=== PATIENT | male | born 1970 | race Two or more races ===

== ENCOUNTER 2023-09-08 21:35 | Inpatient (IN) ==
--- NOTE | 2023-09-08 22:09 | DR.GENAD ---
HPI Time Seen Time Seen by Provider: 09/08/23 22:09 PCP Primary Care Physician: ALFREDA Complaint/Symptoms Chief Complaint Doctors Comments: Patient was evaluated in the ED on 09/06/2023.He was diagnosed with UTI and given IV antibiotic in the ED and IVF. Patient did not get his medication. He states that the pharmacy was not open. Patient has a h/o diabetes and is noncompliant with his insulin medication. Patient states that he feels weak,his body aches,he has chills, his mouth is dry and he has had nausea and vomiting.Patient denies: fever,hematemesi s,hematochezia,dizziness,headache,chest pain. Chief Complaint:: PT TO ED C/O UNRESOLVED SYMPTOMS ONSET 4 DAYS AGO. PT SEEN IN ED 09/06/23. PT TO ED C/O LOPEZ, BODY ACHES, CHILLS, VOMITING. COVID-19 Coronavirus risk:travel/contact w/high risk person: No Has patient experienced Coronavirus symptoms: No Source History Provided: Friend Mode of Arrival Mode of Arrival: Ambulatory Timing Onset of Chief Complaint: 09/04/23 PMH PMH Past Medical History: No Past Medical History: Diabetes and Hypertension Past Surgical History: Yes Surgical History: Other Past Surgical History Comment: HERNIA Family History History of Family Medical Conditions: No Social History Alcohol Use: None Do you use any recreational Drugs:: No Lives With: Family Lives Where: Home Travel Risk Coronavirus risk:travel/contact w/high risk person: No Has patient experienced Coronavirus symptoms: No Infectious screening Have you traveled outside the country in the last 6 months?: No Isolation: Standard ROS Review of Systems Constitutional: Chills and Malaise Eyes: No Symptoms Reported ENTM: No Symptoms Reported Respiratoy: No Symptoms Reported Cardiovascular: Palpitations; negative Chest Pain or Syncope Gastrointestinal/Abdominal: Nausea and Vomiting; negative Diarrhea Genitourinary: No Symptoms Reported Neurological: No Symptoms Reported Musculoskeletal: Muscle Pain Integumentary: No Symptoms Reported Hematologic/Lymphatic: No Symptoms Reported Endocrine: No Symptoms Reported Psychiatric: No Symptoms Reported All Other Systems: Reviewed and Negative PE Vital Signs Vitals: Vital Signs Temperature 102.5 F Temperature 98.6 F Pulse Rate [Right] 91 Pulse Rate 103 Respiratory Rate 18 Respiratory Rate 22 Blood Pressure [Right Arm] 103/62 Blood Pressure 110/65 O2 Sat by Pulse Oximetry 97 O2 Sat by Pulse Oximetry 95 General Limitations: No Limitations General Appearance: Alert and In No Apparent Distress Head Head Exam: Normal Inspection Eyes Eye exam: Normal Appearance ENT ENT Exam: Mucous Membranes Dry External Ear Exam: Normal External Inspection TM/Canal Exam: Bilateral: Normal Nose Exam: Normal Nose Exam Mouth Exam: Normal Inspection Throat Exam: Normal Inspection Neck Neck Exam: Normal Inspection Chest Chest Inspection: Normal Inspection Respiratory Respiratory Exam: Normal Lung Sounds Bilat Respiratory Exam: Bilateral: Clear to Auscultation Cardiovascular Cardiovascular Exam: Tachycardia Abdominal Exam Abdominal Exam: Normal Inspection, Soft, Tenderness and Hypoactive Bowel Sounds Abdominal Tenderness: Suprapubic Extremities Extremities Exam: Normal Inspection Back Back Exam: Normal Inspection Neurologic Neurological Exam: Alert and Oriented X3 Psychiatric Psychiatric Exam: Normal Affect and Normal Mood Skin Skin Exam: Warm, Dry, Intact and Normal Color MDM Differential Diagnosis Differential Diagnosis: DKA,UTI,dehydration,hyperglycemia COURSE Treatment Treatment: Patient was brought to an exam room and iv access was initiated.Patient was given NS 1 liter IV bolus,labs were ordered.Patient's CMP revealed a Na 125/C02 15.9/Glu 345 Hgb A 1C >14. He was given Regular insulin 3 units IV. Patient had a BG 234 approx 1 h after seum glucose 289.Serum acetone is moderately elevated. Patient was given D5NS @ 200ml/hr and insulin drip protocol will be initiatd to treat his DKA. Patient still has a UTI and received Rocephin 2g iv. Patient with temp 102 and was given tylenol 1000mg iv. Discussed case with Dr Manriquez and patient has been admitted to ICU for further evaluation. ROR Labs Reviewed Laboratory Results Reviewed?: Yes 09/09/23 00:18 09/09/23 03:20 Laboratory: WBC 9.6 X10^3/uL (3.6-10.0) 09/09/23 00:18 RBC 3.89 X10^6/uL (4.7-6.0) L 09/09/23 00:18 Hgb 12.5 g/dL (13.5-18.0) L 09/09/23 00:18 Hct 36.5 % (42.0-54.0) L 09/09/23 00:18 MCV 94.0 fL (80.0-100.0) 09/09/23 00:18 MCH 32.2 pg (27.0-34.0) 09/09/23 00:18 MCHC 34.3 g/dL (33.0-35.0) 09/09/23 00:18 RDW 13.0 % (11.6-16.5) 09/09/23 00:18 Plt Count 211 X10^3/uL (150.0-450.0) 09/09/23 00:18 MPV 8.7 fL (7.4-11.0) 09/09/23 00:18 Neut % (Auto) 83.0 % (42.0-75.0) H 09/09/23 00:18 Lymph % (Auto) 4.7 % (21.0-51.0) L 09/09/23 00:18 [place] % (Auto) 11.7 % (0.0-13.0) 09/09/23 00:18 Eos % (Auto) 0.0 % (0.9-2.9) L 09/09/23 00:18 Baso % (Auto) 0.6 % (0.2-1.0) 09/09/23 00:18 Neut # (Auto) 8.0 x10^3/uL (2.2-4.8) H 09/09/23 00:18 Lymph # (Auto) 0.4 X10^3/uL (1.3-2.9) L 09/09/23 00:18 [place] # (Auto) 1.1 x10^3/uL (0.3-0.8) H 09/09/23 00:18 Eos # (Auto) 0.0 x10^3/uL (0.0-0.2) 09/09/23 00:18 Baso # (Auto) 0.1 X10^3/uL (0.0-0.1) 09/09/23 00:18 Absolute Nucleated RBC 0.1 /100WBC 09/09/23 00:18 Sodium 128 mmol/L (136-145) L 09/09/23 03:20 Corrected Sodium 133 mmol/L (136-145) L 09/09/23 03:20 Potassium 3.8 mmol/L (3.5-5.1) 09/09/23 03:20 Chloride 94 mmol/L (98-107) L 09/09/23 03:20 Carbon Dioxide 16.8 mmol/L (21-32) L 09/09/23 03:20 BUN 11 mg/dL (7-18) 09/09/23 03:20 Creatinine 0.68 mg/dL (0.70-1.30) L 09/09/23 03:20 Est GFR (MDRD) Af Amer > 60 (>60) 09/09/23 03:20 Est GFR (MDRD) Non-Af > 60 (>60) 09/09/23 03:20 Glucose 289 mg/dL (65-99) H 09/09/23 03:20 POC Glucose (mg/dL) 234 mg/dL (65-99) H 09/09/23 04:11 Hemoglobin A1c > 14.0 % 09/09/23 00:18 Calcium 7.6 mg/dL (8.5-10.1) L 09/09/23 03:20 Corrected Calcium 9.2 mg/dL (8.5-10.1) 09/09/23 00:18 Total Bilirubin 0.60 mg/dL (0.2-1.0) 09/09/23 00:18 AST 19 Units/L (15-37) 09/09/23 00:18 ALT 14 Units/L (12-78) 09/09/23 00:18 Alkaline Phosphatase 128 Units/L (46-116) H 09/09/23 00:18 Total Protein 6.2 g/dL (6.4-8.2) L 09/09/23 00:18 Albumin 2.2 g/dL (3.4-5.0) L 09/09/23 00:18 Globulin 4.0 g/dL (2.5-4.5) 09/09/23 00:18 Albumin/Globulin Ratio 0.6 Ratio (1.1-2.1) L 09/09/23 00:18 Specimen Type Clean catch urine 09/09/23 03:00 Urine Color Yellow (YELLOW) 09/09/23 03:00 Urine Appearance Clear (CLEAR) 09/09/23 03:00 Urine pH 5.0 (5.0 - 8.0) 09/09/23 03:00 Ur Specific [place] 1.015 (1.000-1.030) 09/09/23 03:00 Urine Protein 1+ (NEGATIVE) 04/11/24 03:00 Urine Glucose (UA) 4+ (NEGATIVE) 09/09/23 03:00 Urine Ketones 4+ (NEGATIVE) 09/09/23 03:00 Urine Blood 1+ (NEGATIVE) 09/09/23 03:00 Urine Nitrite Positive (NEGATIVE) 09/09/23 03:00 Urine Bilirubin Negative (NEGATIVE) 09/09/23 03:00 Urine Acetone Cancelled 09/09/23 03:00 Urine Urobilinogen Normal (NORMAL) 09/09/23 03:00 Ur Leukocyte Esterase Negative (NEGATIVE) 09/09/23 03:00 Urine RBC 3-5 /HPF (0-3) A 09/09/23 03:00 Urine WBC 20-30 /HPF (0-5) A 09/09/23 03:00 Ur Squamous Epith Cells Few /HPF (NEGATIVE) 09/09/23 03:00 Ur Transition Epith Cell Rare /HPF (NEGATIVE) 09/09/23 03:00 Urine Bacteria 1+ /HPF (NEGATIVE) 09/09/23 03:00 Ur Culture Indicated? Yes/culture set up 09/09/23 03:00 Acetone, Semi-Quant Moderate (NEGATIVE) H 09/09/23 00:18 SARS-CoV-2 (PCR) Negative (NEGATIVE) 09/08/23 22:00 Influenza Type A (PCR) Negative (NEGATIVE) 09/08/23 22:00 Influenza Type B (PCR) Negative (NEGATIVE) 09/08/23 22:00 RSV (PCR) Negative (NEGATIVE) 09/08/23 22:00 S. pyogenes (TEM-PCR) Not detected (NOT DETECT) 09/08/23 22:00 Opioid Opioid Risk Tool Age (Satnam box if 16-45): No History of Preadolescent Sexual Abuse: No Total: 0 Total Score Risk Category: Low Risk Copyright: Jovani SANTIAGO predicting aberrant behaviors Discharge Plan Diagnosis Discharge Problem: DKA (diabetic ketoacidosis), Urinary tract infection Discharge Plan Patient Disposition: ADMITTED INPATIENT Condition: Stable Prescriptions: No Action cefdinir 300 mg capsule 300 mg PO BID Qty: 20 0RF ketorolac 10 mg tablet 10 mg PO Q8H PRN (Reason: pain) Qty: 15 0RF Rx Instructions: maximum total duration of 5 days from all oral, intranasal, or parenteral formulations Health Concerns: Post Hospitalization: new medications and changes needed to prevent readmission or further decline. Pt educated and given instructions on all concerns. Plan of Treatment: Continue with present treatment and follow up plan. Pt is to keep follow up appointment as instructed and take medications as ordered. Orders to Discharge Patient Discharge Orders: Transfer (Routine); Ordered 09/09/23 Ordered By: Cierra Alex Follow ups/Referrals Follow ups/Referrals: NFD,None [Primary Care Provider] - 3 days Instructions Stand Alone Forms: Post Hospital Follow Up Care
[2023-09-08 22:35] LABS: STREP A BY PCR NOT DETECTED (NOT DETECT)
[2023-09-09] MEDS: ZOFRAN INJ 4 MG VIAL IVP ONE (00:20)
[2023-09-09] MEDS: NS 1,000 ML IV 1,000 ML IV ONE (00:20)
[2023-09-09] MEDS: ROCEPHIN VIAL 2 GRAMS 2 G in NS 100 ML IV 100 ML IV ONE (00:21)
[2023-09-09 00:54] LABS: BASOPHILS # (AUTO) 0.1 X10^3/uL (0.0-0.1); BASOPHILS % (AUTO) 0.6 % (0.2-1.0); HEMATOCRIT 36.5 % (42.0-54.0); HEMOGLOBIN 12.5 g/dL (13.5-18.0); LYMPHOCYTES # (AUTO) 0.4 X10^3/uL (1.3-2.9); LYMPHOCYTES % (AUTO) 4.7 % (21.0-51.0); MEAN CORPUSCULAR HEMOGLOBIN 32.2 pg (27.0-34.0); MEAN CORPUSCULAR HGB CONC 34.3 g/dL (33.0-35.0); MEAN PLATELET VOLUME 8.7 fL (7.4-11.0); MONOCYTES # (AUTO) 1.1 x10^3/uL (0.3-0.8); MONOCYTES % (AUTO) 11.7 % (0.0-13.0); PLATELET COUNT 211 X10^3/uL (150.0-450.0); RED BLOOD COUNT 3.89 X10^6/uL (4.7-6.0); WHITE BLOOD COUNT 9.6 X10^3/uL (3.6-10.0)
[2023-09-09 00:58] LABS: ALANINE AMINOTRANSFERASE 14 Units/L (12-78); ALBUMIN 2.2 g/dL (3.4-5.0); ALKALINE PHOSPHATASE 128 Units/L (46-116); ASPARTATE AMINO TRANSFERASE 19 Units/L (15-37); BLOOD UREA NITROGEN 13 mg/dL (7-18); CALCIUM 7.8 mg/dL (8.5-10.1); CARBON DIOXIDE 15.9 mmol/L (21-32); CHLORIDE 90 mmol/L (98-107); COR CA(FOR HYPOALB) 9.2 mg/dL (8.5-10.1); GLUCOSE 345 mg/dL (65-99); TOTAL PROTEIN 6.2 g/dL (6.4-8.2); eGFR NON BLACK RACES > 60 (>60)
[2023-09-09 01:02] LABS: COR NA(FOR HYPERGLY) 131 mmol/L (136-145); POTASSIUM 3.9 mmol/L (3.5-5.1)
[2023-09-09 01:12] LABS: SODIUM 125 mmol/L (136-145)
[2023-09-09 03:27] LABS: BILIRUBIN,URINE NEGATIVE (NEGATIVE); BLOOD/HEMOGLOBIN,URINE 1+ (NEGATIVE); GLUCOSE, URINE 4+ (NEGATIVE); KETONES,URINE 4+ (NEGATIVE); LEUKOCYTE ESTERASE ,URINE NEGATIVE (NEGATIVE); NITRITES,URINE POSITIVE (NEGATIVE); PROTEIN,URINE 1+ (NEGATIVE); UROBILINOGEN,URINE NORMAL (NORMAL)
[2023-09-09] MEDS: NovoLIN R (or HumuLIN R) IV ONE (03:29)
[2023-09-09 03:40] LABS: APPEARANCE,URINE CLEAR (CLEAR); COLOR,URINE YELLOW (YELLOW)
[2023-09-09 03:42] LABS: BACTERIA,URINE 1+ /HPF (NEGATIVE); SQUAMOUS EPITHELIAL CELL,UR FEW /HPF (NEGATIVE); TRANSITIONAL EPI CELLS,URINE RARE /HPF (NEGATIVE)
[2023-09-09 03:43] LABS: BLOOD UREA NITROGEN 11 mg/dL (7-18); CALCIUM 7.6 mg/dL (8.5-10.1); CARBON DIOXIDE 16.8 mmol/L (21-32); CHLORIDE 94 mmol/L (98-107); COR NA(FOR HYPERGLY) 133 mmol/L (136-145); CREATININE 0.68 mg/dL (0.70-1.30); GLUCOSE 289 mg/dL (65-99); POTASSIUM 3.8 mmol/L (3.5-5.1); SODIUM 128 mmol/L (136-145); eGFR NON BLACK RACES > 60 (>60)
[2023-09-09] MEDS: MYXREDLIN 100 UNIT/100 ML BAG 100 UNIT/100 ML PLAST..BAG IV PRN (04:25)
[2023-09-09] MEDS: D5 NS 1,000 ML IV 1,000 ML IV ONE (04:25)
[2023-09-09] MEDS: OFIRMEV IV 1000 MG VIAL 1,000 MG/100 ML VIAL IV ONE (04:50)
[2023-09-09] MEDS ORDERED: TORADOL 30 MG VIAL IVP SCH (05:00)
[2023-09-09] MEDS ORDERED: D5 NS 1,000 ML IV 1,000 ML IV SCH (05:00)
[2023-09-09] MEDS: MYXREDLIN 100 UNIT/100 ML BAG 100 UNIT/100 ML PLAST..BAG IV ONE (07:17)
[2023-09-09 08:52] LABS: ABG BASE EXCESS -0.7 mmol/L (-2.0-2.0); ABG HCO3 23.2 mmol/L (22-26)
[2023-09-09] MEDS: ROCEPHIN VIAL 1 GRAM 1 G in NS 100 ML IV 100 ML IV SCH (09:28)
[2023-09-09] MEDS: TORADOL 30 MG VIAL IVP PRN (09:46)
--- NOTE | 2023-09-09 13:20 | DR.H&P ---
H&P History & Physical for Day of: H&P Date: 09/09/23 Chief Complaint Chief Complaint: Headache with body aches, chills and vomiting. Allergies Allergies Allergy/AdvReac Type Severity Reaction Status Date / Time No Known Allergies Allergy Verified 09/06/23 18:49 History of Present Illness History of Present Illness: This is a pleasant 52-year-old male who presented to the [facility] emergency department a few days ago and was diagnosed with a urinary tract infection. The patient does have a history of diabetes mellitus. He was found to have a small amount acetone last night and because of that we decided to go ahead and admitting to the ICU started on insulin drip per protocol. The patient did not have money and was not able to get the antibiotics that was prescribed to him for his urinary tract infection so we will treat him with IV Rocephin for that. We will rehydrate him with IV fluids and repeat serum acetone and routine labs tomorrow morning. We checked ABG this morning and we see the patient is not acidotic at this time. The [facility] had a urinalysis with C&S done on 09/06/2023 there grew out Pseudomonas pneumoniae ESBL. It is sensitive to meropenem with a KASSY of less than 0.5. Patient also had a positive blood culture 1 out of 2 on 09/06/1901/18/2024 showed gram- positive cocci. Past Medical History Past Medical History: Diabetes and Hypertension Past Surgical History Surgical History: Other Social History Does patient currently use any type of tobacco product: No Have you used tobacco products in the last 12 months: No Type of Tobacco Use: None Alcohol Use: None Drug Use: None Medications Home Medications: Home Medications Medication Instructions Recorded Confirmed Type NK 09/09/23 09/09/23 History Labs 09/09/23 00:18 09/09/23 03:20 Labs: Laboratory WBC 9.6 X10^3/uL (3.6-10.0) 09/09/23 00:18 RBC 3.89 X10^6/uL (4.7-6.0) L 09/09/23 00:18 Hgb 12.5 g/dL (13.5-18.0) L 09/09/23 00:18 Hct 36.5 % (42.0-54.0) L 09/09/23 00:18 MCV 94.0 fL (80.0-100.0) 09/09/23 00:18 MCH 32.2 pg (27.0-34.0) 09/09/23 00:18 MCHC 34.3 g/dL (33.0-35.0) 09/09/23 00:18 RDW 13.0 % (11.6-16.5) 09/09/23 00:18 Plt Count 211 X10^3/uL (150.0-450.0) 09/09/23 00:18 MPV 8.7 fL (7.4-11.0) 09/09/23 00:18 Neut % (Auto) 83.0 % (42.0-75.0) H 09/09/23 00:18 Lymph % (Auto) 4.7 % (21.0-51.0) L 09/09/23 00:18 [place] % (Auto) 11.7 % (0.0-13.0) 09/09/23 00:18 Eos % (Auto) 0.0 % (0.9-2.9) L 09/09/23 00:18 Baso % (Auto) 0.6 % (0.2-1.0) 09/09/23 00:18 Neut # (Auto) 8.0 x10^3/uL (2.2-4.8) H 09/09/23 00:18 Lymph # (Auto) 0.4 X10^3/uL (1.3-2.9) L 09/09/23 00:18 [place] # (Auto) 1.1 x10^3/uL (0.3-0.8) H 09/09/23 00:18 Eos # (Auto) 0.0 x10^3/uL (0.0-0.2) 09/09/23 00:18 Baso # (Auto) 0.1 X10^3/uL (0.0-0.1) 09/09/23 00:18 Absolute Nucleated RBC 0.1 /100WBC 09/09/23 00:18 Sample Site [facility] 09/09/23 08:47 ABG pH 7.430 (7.35-7.45) 09/09/23 08:47 ABG pCO2 35.0 mmHg (35.0-45.0) 09/09/23 08:47 ABG pO2 64.0 mmHg (80.0-100.0) L 09/09/23 08:47 ABG HCO3 23.2 mmol/L (22-26) 09/09/23 08:47 ABG O2 Saturation 93.0 % (90-100) 09/09/23 08:47 ABG Base Excess -0.7 mmol/L (-2.0-2.0) 09/09/23 08:47 Stiven Test N/a 09/09/23 08:47 A-a Gradient 42.0 mmHg 09/09/23 08:47 FiO2 21.0 09/09/23 08:47 Blood Gas Comments Pt kirsten well elj 09/09/23 08:47 Sodium 128 mmol/L (136-145) L 09/09/23 03:20 Corrected Sodium 133 mmol/L (136-145) L 09/09/23 03:20 Potassium 3.8 mmol/L (3.5-5.1) 09/09/23 03:20 Chloride 94 mmol/L (98-107) L 09/09/23 03:20 Carbon Dioxide 16.8 mmol/L (21-32) L 09/09/23 03:20 BUN 11 mg/dL (7-18) 09/09/23 03:20 Creatinine 0.68 mg/dL (0.70-1.30) L 09/09/23 03:20 Est GFR (MDRD) Af Amer > 60 (>60) 09/09/23 03:20 Est GFR (MDRD) Non-Af > 60 (>60) 09/09/23 03:20 Glucose 289 mg/dL (65-99) H 09/09/23 03:20 POC Glucose (mg/dL) 216 mg/dL (65-99) H 09/09/23 13:04 Hemoglobin A1c > 14.0 % 09/09/23 00:18 Calcium 7.6 mg/dL (8.5-10.1) L 09/09/23 03:20 Corrected Calcium 9.2 mg/dL (8.5-10.1) 09/09/23 00:18 Total Bilirubin 0.60 mg/dL (0.2-1.0) 09/09/23 00:18 AST 19 Units/L (15-37) 09/09/23 00:18 ALT 14 Units/L (12-78) 09/09/23 00:18 Alkaline Phosphatase 128 Units/L (46-116) H 09/09/23 00:18 Total Protein 6.2 g/dL (6.4-8.2) L 09/09/23 00:18 Albumin 2.2 g/dL (3.4-5.0) L 09/09/23 00:18 Globulin 4.0 g/dL (2.5-4.5) 09/09/23 00:18 Albumin/Globulin Ratio 0.6 Ratio (1.1-2.1) L 09/09/23 00:18 Specimen Type Clean catch urine 09/09/23 03:00 Urine Color Yellow (YELLOW) 09/09/23 03:00 Urine Appearance Clear (CLEAR) 09/09/23 03:00 Urine pH 5.0 (5.0 - 8.0) 09/09/23 03:00 Ur Specific [place] 1.015 (1.000-1.030) 09/09/23 03:00 Urine Protein 1+ (NEGATIVE) 09/09/23 03:00 Urine Glucose (UA) 4+ (NEGATIVE) 09/09/23 03:00 Urine Ketones 4+ (NEGATIVE) 09/09/23 03:00 Urine Blood 1+ (NEGATIVE) 09/09/23 03:00 Urine Nitrite Positive (NEGATIVE) 09/09/23 03:00 Urine Bilirubin Negative (NEGATIVE) 09/09/23 03:00 Urine Acetone Cancelled 09/09/23 03:00 Urine Urobilinogen Normal (NORMAL) 09/09/23 03:00 Ur Leukocyte Esterase Negative (NEGATIVE) 09/09/23 03:00 Urine RBC 3-5 /HPF (0-3) A 09/09/23 03:00 Urine WBC 20-30 /HPF (0-5) A 09/09/23 03:00 Ur Squamous Epith Cells Few /HPF (NEGATIVE) 09/09/23 03:00 Ur Transition Epith Cell Rare /HPF (NEGATIVE) 09/09/23 03:00 Urine Bacteria 1+ /HPF (NEGATIVE) 09/09/23 03:00 Ur Culture Indicated? Yes/culture set up 09/09/23 03:00 Acetone, Semi-Quant Moderate (NEGATIVE) H 09/09/23 00:18 SARS-CoV-2 (PCR) Negative (NEGATIVE) 09/08/23 22:00 Influenza Type A (PCR) Negative (NEGATIVE) 09/08/23 22:00 Influenza Type B (PCR) Negative (NEGATIVE) 09/08/23 22:00 RSV (PCR) Negative (NEGATIVE) 09/08/23 22:00 S. pyogenes (TEM-PCR) Not detected (NOT DETECT) 09/08/23 22:00 Review of Systems Constitutional: Fever, Chills, Sweats, Weakness and Malaise Eyes: No Symptoms Reported ENT: No Symptoms Reported Respiratory: No Symptoms Reported Cardiovascular: No Symptoms Reported Gastrointestinal: No Symptoms Reported Genitourinary: No Symptoms Reported Musculoskeletal: No Symptoms Reported Skin: No Symptoms Reported Neurological: No Symptoms Reported Physical Exam Vital Signs: Vital Signs Temperature 97.6 F Pulse Rate 87 Pulse Rate 78 Pulse Rate 76 Pulse Rate 76 Pulse Rate 75 Pulse Rate 71 Pulse Rate 71 Pulse Rate 76 Respiratory Rate 14 Respiratory Rate 19 Respiratory Rate 17 Respiratory Rate 16 Respiratory Rate 14 Respiratory Rate 23 Respiratory Rate 16 Respiratory Rate 15 Respiratory Rate 12 Respiratory Rate 23 Blood Pressure 81/50 Blood Pressure 97/57 Blood Pressure 97/57 Blood Pressure 103/73 O2 Sat by Pulse Oximetry 97 O2 Sat by Pulse Oximetry 96 O2 Sat by Pulse Oximetry 97 O2 Sat by Pulse Oximetry 97 O2 Sat by Pulse Oximetry 95 O2 Sat by Pulse Oximetry 95 O2 Sat by Pulse Oximetry 95 Oriented: Normal, Time, Person and Place Eyes: Normal Ear: Normal Nose: Normal Respiratory: Clear Throughout Cardiovascular: Normal Auscultation: Bowel Sounds: Normal Palpation: Normal Tenderness: Normal Skin: Normal Musculoskeletal: Normal Psychiatric: Normal Mood Description: Calm Affect: Normal Speech Pattern: Clear and Appropriate Assessment/Plan (1) DKA (diabetic ketoacidosis): Status: Acute Plan: Insulin drip per protocol. Check daily ABGs and serum acetone's until he is serum acetone negative. (2) Urinary tract infection: Narrative Support Text: Recent urine culture and sensitivity on 09/06/2023 show the patient grew out Klebsiella pneumoniae ESBL. It is sensitive to Invanz with KASSY of less than 0.5. Status: Acute Plan: IV Rocephin. Follow-up urine culture and sensitivity report available. Start Invanz 1 g IV daily. (3) General weakness: Status: Acute Plan: Monitor for improvement with IV insulin drip and IV fluid hydration along with IV antibiotics.
[2023-09-09] MEDS: INVanz INJ 1 GRAM VIAL 1 G in NS 100 ML IV 100 ML IV SCH (14:10)
[2023-09-09] MEDS: NS 250 ML IV 250 ML IV ONE (14:48)
--- NOTE | 2023-09-09 15:07 | RAD ---
EXAM: CHEST, 1 VIEW HISTORY: P02 [id number], SOB; COMPARISON: Prior study or studies were utilized for comparison during interpretation with the most relevant good ed 09/06/2023 TECHNIQUE: CHEST, 1 VIEW FINDINGS: Chest: Lines and tubes: Cardiac leads overlie the chest. Mediastinum: Cardiac and mediastinal shadow is within normal limits for size and contour. Pulmonary vessels: No pulmonary vascular congestion. Lung sharma: No suspicious airspace opacity. Pleura: No effusion. No pneumothorax. Bones and soft tissues: No acute osseous or soft tissue abnormality. IMPRESSION: 1. No acute cardiopulmonary abnormality THIS IS AN ELECTRONICALLY VERIFIED FINAL REPORT 09/09/2023 2:54 PM - Electronically signed by Trev Bobby MD
[2023-09-09] MEDS: TYLENOL 325 MG TAB PO PRN (20:30)
[2023-09-10] MEDS: NS 250 ML IV 250 ML IV ONE (04:00)
[2023-09-10 04:50] LABS: BASOPHILS % (AUTO) 0.7 % (0.2-1.0); EOSINOPHILS % (AUTO) 0.1 % (0.9-2.9); HEMATOCRIT 33.5 % (42.0-54.0); HEMOGLOBIN 11.7 g/dL (13.5-18.0); LYMPHOCYTES # (AUTO) 0.3 X10^3/uL (1.3-2.9); LYMPHOCYTES % (AUTO) 5.9 % (21.0-51.0); MEAN CORPUSCULAR HEMOGLOBIN 32.2 pg (27.0-34.0); MEAN CORPUSCULAR HGB CONC 34.7 g/dL (33.0-35.0); MEAN CORPUSCULAR VOLUME 92.7 fL (80.0-100.0); MEAN PLATELET VOLUME 8.9 fL (7.4-11.0); MONOCYTES # (AUTO) 0.6 x10^3/uL (0.3-0.8); MONOCYTES % (AUTO) 9.8 % (0.0-13.0); NEUTROPHILS # (AUTO) 4.9 x10^3/uL (2.2-4.8); NEUTROPHILS % (AUTO) 83.5 % (42.0-75.0); PLATELET COUNT 203 X10^3/uL (150.0-450.0); RED BLOOD COUNT 3.62 X10^6/uL (4.7-6.0); RED CELL DISTRIBUTION WIDTH 13.2 % (11.6-16.5); WHITE BLOOD COUNT 5.9 X10^3/uL (3.6-10.0)
[2023-09-10 05:07] LABS: BLOOD UREA NITROGEN 10 mg/dL (7-18); CALCIUM 7.8 mg/dL (8.5-10.1); CARBON DIOXIDE 24.8 mmol/L (21-32); CHLORIDE 102 mmol/L (98-107); COR NA(FOR HYPERGLY) 135 mmol/L (136-145); CREATININE 0.54 mg/dL (0.70-1.30); GLUCOSE 119 mg/dL (65-99); SODIUM 135 mmol/L (136-145); eGFR NON BLACK RACES > 60 (>60)
[2023-09-10 05:23] LABS: ALANINE AMINOTRANSFERASE 113 Units/L (12-78); ALBUMIN 1.8 g/dL (3.4-5.0); ALKALINE PHOSPHATASE 326 Units/L (46-116); ASPARTATE AMINO TRANSFERASE 227 Units/L (15-37); COR CA(FOR HYPOALB) 9.6 mg/dL (8.5-10.1); POTASSIUM 2.5 mmol/L (3.5-5.1); TOTAL PROTEIN 5.4 g/dL (6.4-8.2)
[2023-09-10] MEDS: CONSULT PHARMACY - POTASSIUM & MAGNESIUM XX SCH (06:48)
[2023-09-10] MEDS: K-DUR TAB 20 MEQ PO SCH (08:48)
[2023-09-10] MEDS ORDERED: IMODIUM CAP 2 MG PO PRN (09:01)
[2023-09-10 13:03] LABS: CRYPTOSPORIDIUM PARVUM ANTIGEN NEGATIVE (NEGATIVE); GIARDIA LAMBLIA ANTIGEN NEGATIVE (NEGATIVE)
[2023-09-10] MEDS: LEVEMIR SC SCH (14:02)
[2023-09-10] MEDS: CIPRO IV 400 MG PREMIX* 400 MG/200 ML IV.SOLN. IV SCH (14:02)
[2023-09-10] MEDS: NovoLIN R (or HumuLIN R) SUBCUT PRN (14:03)
--- NOTE | 2023-09-10 16:42 | PCM.PROG ---
Progress Note Progress Note for Day of Date of Exam: 09/10/23 Subjective Subjective: The patient is alert and awake this morning. He is complaining some abdominal pain. Later on in the morning the nurse called me and states that he has started having diarrhea. I ordered a Hemoccult, stool for WBCs, stool culture, and C. difficile. The patient is positive on his Hemoccult and is WBCs in the stool. He is negative for Campylobacter jejuni and the stool culture is pending. I have forwarded went ahead and started him on IV Cipro along with IV Invanz. Regarding his DKA has resolved. We put him on a slight scale regular insulin per protocol and I had started him on Levemir 10 units subcutaneous injections twice daily as well. He has profound hypokalemia today which we will replace. He also was found to have hypomagnesemia which we will will start him on replacement for that as well. We found that the patient has elevated LFTs this morning so we are going to check a liver ultrasound and hepatitis panel. I suspect that elevated LFTs are secondary to sepsis. Blood cultures were done and Gram stain of the blood culture showed he has gram-negative rods. His urine was positive for Klebsiella pneumoniae ESBL and this is likely the cause of his sepsis. Patient is covered with IV Invanz which showed KASSY of less than 0.5 from the urine culture. I suspect the patient likely has urosepsis. Past Medical Family Social History Allergies: Allergies No Known Allergies Allergy (Verified 09/06/23 18:49) Review of Systems ROS: No change since H&P Vital Signs and I&O's Vital Signs: Vital Signs Temperature 97.9 F Pulse Rate 81 Pulse Rate 84 Pulse Rate 77 Pulse Rate 81 Pulse Rate 80 Pulse Rate 82 Pulse Rate 86 Pulse Rate 84 Pulse Rate 85 Pulse Rate 83 Pulse Rate 81 Pulse Rate 77 Pulse Rate 77 Pulse Rate 77 Pulse Rate 79 Pulse Rate 80 Pulse Rate 80 Pulse Rate 72 Pulse Rate 71 Pulse Rate 71 Pulse Rate 73 Pulse Rate 73 Pulse Rate 75 Pulse Rate 75 Pulse Rate 78 Pulse Rate 79 Pulse Rate 81 Pulse Rate 83 Pulse Rate 85 Pulse Rate 86 Pulse Rate 92 Respiratory Rate 19 Respiratory Rate 41 Respiratory Rate 15 Respiratory Rate 14 Respiratory Rate 12 Respiratory Rate 12 Respiratory Rate 16 Respiratory Rate 20 Respiratory Rate 31 Respiratory Rate 19 Respiratory Rate 23 Respiratory Rate 16 Respiratory Rate 16 Respiratory Rate 22 Respiratory Rate 19 Respiratory Rate 22 Respiratory Rate 12 Respiratory Rate 17 Respiratory Rate 12 Respiratory Rate 13 Respiratory Rate 11 Respiratory Rate 12 Respiratory Rate 15 Respiratory Rate 13 Respiratory Rate 14 Respiratory Rate 14 Respiratory Rate 14 Respiratory Rate 24 Respiratory Rate 19 Respiratory Rate 18 Blood Pressure 109/78 Blood Pressure 112/70 Blood Pressure 96/61 Blood Pressure 104/63 O2 Sat by Pulse Oximetry 98 O2 Sat by Pulse Oximetry 97 O2 Sat by Pulse Oximetry 97 O2 Sat by Pulse Oximetry 97 O2 Sat by Pulse Oximetry 96 O2 Sat by Pulse Oximetry 97 O2 Sat by Pulse Oximetry 98 O2 Sat by Pulse Oximetry 98 O2 Sat by Pulse Oximetry 99 O2 Sat by Pulse Oximetry 98 O2 Sat by Pulse Oximetry 99 O2 Sat by Pulse Oximetry 98 O2 Sat by Pulse Oximetry 98 O2 Sat by Pulse Oximetry 99 O2 Sat by Pulse Oximetry 98 O2 Sat by Pulse Oximetry 99 O2 Sat by Pulse Oximetry 97 O2 Sat by Pulse Oximetry 96 O2 Sat by Pulse Oximetry 93 O2 Sat by Pulse Oximetry 97 O2 Sat by Pulse Oximetry 96 O2 Sat by Pulse Oximetry 97 O2 Sat by Pulse Oximetry 96 O2 Sat by Pulse Oximetry 95 O2 Sat by Pulse Oximetry 95 O2 Sat by Pulse Oximetry 96 O2 Sat by Pulse Oximetry 95 O2 Sat by Pulse Oximetry 93 O2 Sat by Pulse Oximetry 95 O2 Sat by Pulse Oximetry 95 O2 Sat by Pulse Oximetry 95 Intake and Output: Intake & Output 09/08/23 09/09/23 09/10/23 09/11/23 11:59 11:59 11:59 11:59 Intake Total 73 / 73 2800 / 2800 378 / 378 Output Total 1925 / 1925 575 / 575 Balance 73 / 73 875 / 875 -197 / -197 Physical Exam Oriented: Normal, Time, Person and Place Eyes: Normal Ear: Normal Nose: Normal Respiratory: Normal Cardiovascular: Normal Auscultation: Bowel Sounds: Normal Tenderness: Normal Skin: Normal Musculoskeletal: Normal Psychiatric: Normal Mood Description: Calm Affect: Normal Speech Pattern: Clear and Appropriate Laboratory and Diagnostics 09/10/23 04:00 09/10/23 04:00 Labs: 09/10/23 12:05 Stool - Final 09/09/23 03:00 Urine,Clean Catch Urine Culture - Preliminary 09/09/23 20:23 Blood Blood Culture Gram Stain - Final Laboratory WBC 5.9 X10^3/uL (3.6-10.0) 09/10/23 04:00 RBC 3.62 X10^6/uL (4.7-6.0) L 09/10/23 04:00 Hgb 11.7 g/dL (13.5-18.0) L 09/10/23 04:00 Hct 33.5 % (42.0-54.0) L 09/10/23 04:00 MCV 92.7 fL (80.0-100.0) 09/10/23 04:00 MCH 32.2 pg (27.0-34.0) 09/10/23 04:00 MCHC 34.7 g/dL (33.0-35.0) 09/10/23 04:00 RDW 13.2 % (11.6-16.5) 09/10/23 04:00 Plt Count 203 X10^3/uL (150.0-450.0) 09/10/23 04:00 MPV 8.9 fL (7.4-11.0) 09/10/23 04:00 Neut % (Auto) 83.5 % (42.0-75.0) H 09/10/23 04:00 Lymph % (Auto) 5.9 % (21.0-51.0) L 09/10/23 04:00 [place] % (Auto) 9.8 % (0.0-13.0) 09/10/23 04:00 Eos % (Auto) 0.1 % (0.9-2.9) L 09/10/23 04:00 Baso % (Auto) 0.7 % (0.2-1.0) 09/10/23 04:00 Neut # (Auto) 4.9 x10^3/uL (2.2-4.8) H 09/10/23 04:00 Lymph # (Auto) 0.3 X10^3/uL (1.3-2.9) L 09/10/23 04:00 [place] # (Auto) 0.6 x10^3/uL (0.3-0.8) 09/10/23 04:00 Eos # (Auto) 0.0 x10^3/uL (0.0-0.2) 09/10/23 04:00 Baso # (Auto) 0.0 X10^3/uL (0.0-0.1) 09/10/23 04:00 Absolute Nucleated RBC 0.0 /100WBC 09/10/23 04:00 Sample Site Rbra 09/09/23 08:47 ABG pH 7.430 (7.35-7.45) 09/09/23 08:47 ABG pCO2 35.0 mmHg (35.0-45.0) 09/09/23 08:47 ABG pO2 64.0 mmHg (80.0-100.0) L 09/09/23 08:47 ABG HCO3 23.2 mmol/L (22-26) 09/09/23 08:47 ABG O2 Saturation 93.0 % (90-100) 09/09/23 08:47 ABG Base Excess -0.7 mmol/L (-2.0-2.0) 09/09/23 08:47 Stiven Test N/a 09/09/23 08:47 A-a Gradient 42.0 mmHg 09/09/23 08:47 FiO2 21.0 09/09/23 08:47 Blood Gas Comments Pt kirsten well elj 09/09/23 08:47 Sodium 135 mmol/L (136-145) L 09/10/23 04:00 Corrected Sodium 135 mmol/L (136-145) L 09/10/23 04:00 Potassium 2.5 mmol/L (3.5-5.1) L* 09/10/23 04:00 Chloride 102 mmol/L (98-107) 09/10/23 04:00 Carbon Dioxide 24.8 mmol/L (21-32) 09/10/23 04:00 BUN 10 mg/dL (7-18) 09/10/23 04:00 Creatinine 0.54 mg/dL (0.70-1.30) L 09/10/23 04:00 Est GFR (MDRD) Af Amer > 60 (>60) 09/10/23 04:00 Est GFR (MDRD) Non-Af > 60 (>60) 09/10/23 04:00 Glucose 119 mg/dL (65-99) H 09/10/23 04:00 POC Glucose (mg/dL) 310 mg/dL (65-99) H 09/10/23 16:23 Hemoglobin A1c > 14.0 % 09/09/23 00:18 Calcium 7.8 mg/dL (8.5-10.1) L 09/10/23 04:00 Corrected Calcium 9.6 mg/dL (8.5-10.1) 09/10/23 04:00 Magnesium 1.8 mg/dL (2.0-2.9) L 09/10/23 04:00 Total Bilirubin 0.20 mg/dL (0.2-1.0) 09/10/23 04:00 AST 227 Units/L (15-37) H 09/10/23 04:00 ALT 113 Units/L (12-78) H 09/10/23 04:00 Alkaline Phosphatase 326 Units/L (46-116) H 09/10/23 04:00 Total Protein 5.4 g/dL (6.4-8.2) L 09/10/23 04:00 Albumin 1.8 g/dL (3.4-5.0) L 09/10/23 04:00 Globulin 3.6 g/dL (2.5-4.5) 09/10/23 04:00 Albumin/Globulin Ratio 0.5 Ratio (1.1-2.1) L 09/10/23 04:00 Specimen Type Clean catch urine 09/09/23 03:00 Urine Color Yellow (YELLOW) 09/09/23 03:00 Urine Appearance Clear (CLEAR) 09/09/23 03:00 Urine pH 5.0 (5.0 - 8.0) 09/09/23 03:00 Ur Specific [place] 1.015 (1.000-1.030) 09/09/23 03:00 Urine Protein 1+ (NEGATIVE) 09/09/23 03:00 Urine Glucose (UA) 4+ (NEGATIVE) 09/09/23 03:00 Urine Ketones 4+ (NEGATIVE) 09/09/23 03:00 Urine Blood 1+ (NEGATIVE) 09/09/23 03:00 Urine Nitrite Positive (NEGATIVE) 09/09/23 03:00 Urine Bilirubin Negative (NEGATIVE) 09/09/23 03:00 Urine Acetone Cancelled 09/09/23 03:00 Urine Urobilinogen Normal (NORMAL) 09/09/23 03:00 Ur Leukocyte Esterase Negative (NEGATIVE) 09/09/23 03:00 Urine RBC 3-5 /HPF (0-3) A 09/09/23 03:00 Urine WBC 20-30 /HPF (0-5) A 09/09/23 03:00 Ur Squamous Epith Cells Few /HPF (NEGATIVE) 09/09/23 03:00 Ur Transition Epith Cell Rare /HPF (NEGATIVE) 09/09/23 03:00 Urine Bacteria 1+ /HPF (NEGATIVE) 09/09/23 03:00 Ur Culture Indicated? Yes/culture set up 09/09/23 03:00 Stl Occult Blood (IFOB) Positive (NEGATIVE) A 09/10/23 12:05 Stool for White Cells Positive (NEGATIVE) A 09/10/23 12:05 Stl C. diff Tox B Gene Negative (NEGATIVE) 09/10/23 12:05 Stl C. diff [id number] Presumptive negative (NEGATIVE) 09/10/23 12:05 Acetone, Semi-Quant Negative (NEGATIVE) 09/10/23 04:00 SARS-CoV-2 (PCR) Negative (NEGATIVE) 09/08/23 22:00 Cryptosporid parvum Ag Negative (NEGATIVE) 09/10/23 12:05 Giardia lamblia Ag Negative (NEGATIVE) 09/10/23 12:05 Influenza Type A (PCR) Negative (NEGATIVE) 09/08/23 22:00 Influenza Type B (PCR) Negative (NEGATIVE) 09/08/23 22:00 RSV (PCR) Negative (NEGATIVE) 09/08/23 22:00 S. pyogenes (TEM-PCR) Not detected (NOT DETECT) 09/08/23 22:00 Radiology Reviewed: Yes Plan (1) DKA (diabetic ketoacidosis): Status: Acute Plan: Insulin drip per protocol. Check daily ABGs and serum acetone's until he is serum acetone negative. (2) Urinary tract infection: Status: Acute Plan: IV Rocephin. Follow-up urine culture and sensitivity report available. Start Invanz 1 g IV daily. (3) General weakness: Status: Acute Plan: Monitor for improvement with IV insulin drip and IV fluid hydration along with IV antibiotics. (4) Gram-negative sepsis: Status: Acute Plan: Follow-up blood cultures. I suspect the patient likely has urosepsis secondary to ESBL Klebsiella pneumonia. It is sensitive to Invanz. (5) Hypokalemia: Status: Acute Plan: Replace with potassium replacement protocol. (6) Hypomagnesemia: Status: Acute Plan: Replace magnesium with the magnesium replacement and potassium replacement protocol. (7) Elevated LFTs: Status: Acute Plan: The patient's elevated LFTs are likely secondary to gram-negative sepsis. However we will go ahead and check hepatitis panel and a liver ultrasound. (8) Urinary tract infection due to extended-spectrum beta lactamase (ESBL)- producing Klebsiella: Status: Acute Plan: Continue IV Invanz. He has KASSY of less than 0.5 for ertapenem. (9) Type 1 diabetes mellitus: Status: Acute Plan: Levemir 10 units subcutaneous injections twice daily. Regular insulin sliding scale before every meal and at bedtime.
[2023-09-10] MEDS: SNACK - Diabetic Appropriate PO SCH (19:48)
[2023-09-11 05:36] LABS: BASOPHILS # (AUTO) 0.1 X10^3/uL (0.0-0.1); BASOPHILS % (AUTO) 1.1 % (0.2-1.0); EOSINOPHILS % (AUTO) 0.2 % (0.9-2.9); HEMATOCRIT 34.6 % (42.0-54.0); LYMPHOCYTES # (AUTO) 0.6 X10^3/uL (1.3-2.9); LYMPHOCYTES % (AUTO) 10.1 % (21.0-51.0); MEAN CORPUSCULAR HEMOGLOBIN 32.3 pg (27.0-34.0); MEAN CORPUSCULAR HGB CONC 34.7 g/dL (33.0-35.0); MEAN CORPUSCULAR VOLUME 93.1 fL (80.0-100.0); MEAN PLATELET VOLUME 8.8 fL (7.4-11.0); MONOCYTES # (AUTO) 0.9 x10^3/uL (0.3-0.8); MONOCYTES % (AUTO) 14.8 % (0.0-13.0); NEUTROPHILS # (AUTO) 4.6 x10^3/uL (2.2-4.8); NEUTROPHILS % (AUTO) 73.8 % (42.0-75.0); PLATELET COUNT 208 X10^3/uL (150.0-450.0); RED BLOOD COUNT 3.72 X10^6/uL (4.7-6.0); RED CELL DISTRIBUTION WIDTH 13.6 % (11.6-16.5); WHITE BLOOD COUNT 6.2 X10^3/uL (3.6-10.0)
[2023-09-11 05:43] LABS: ALANINE AMINOTRANSFERASE 112 Units/L (12-78); ALBUMIN 1.9 g/dL (3.4-5.0); ALKALINE PHOSPHATASE 331 Units/L (46-116); ASPARTATE AMINO TRANSFERASE 122 Units/L (15-37); BLOOD UREA NITROGEN 11 mg/dL (7-18); CALCIUM 7.9 mg/dL (8.5-10.1); CHLORIDE 97 mmol/L (98-107); COR CA(FOR HYPOALB) 9.6 mg/dL (8.5-10.1); COR NA(FOR HYPERGLY) 140 mmol/L (136-145); CREATININE 0.61 mg/dL (0.70-1.30); GLUCOSE 403 mg/dL (65-99); POTASSIUM 3.4 mmol/L (3.5-5.1); SODIUM 133 mmol/L (136-145); TOTAL PROTEIN 5.7 g/dL (6.4-8.2); eGFR NON BLACK RACES > 60 (>60)
[2023-09-11 06:15] LABS: BAND NEUTROPHILS % 10 % (0-10)
[2023-09-11 06:16] LABS: BASOPHILS % (MANUAL) 1 % (0-1); PLATELET MORPHOLOGY COMMENT NORMAL (NORMAL)
[2023-09-11] MEDS ORDERED: CONSULT PHARMACY - POTASSIUM & MAGNESIUM XX SCH (07:00)
[2023-09-11] MEDS: K-DUR TAB 20 MEQ PO SCH (09:16)
[2023-09-11] MEDS: MAG-OX TAB PO SCH (10:22)
--- NOTE | 2023-09-11 11:08 | PCM.PROG ---
Progress Note Progress Note for Day of Date of Exam: 09/11/23 Subjective Subjective: Patient seen at bedside, no acute events overnight. He has not had any diarrhea overnight. He has been ambulating in the room. He reports generalized joint pain and weakness. He is currently being treated for bacteremia, colitis and DKA. He is currently on IV Cipro and IV Invanz. He de nies any nausea, vomiting or abdominal pain. Labs and imaging reviewed: -WBC 6.2 hemoglobin 12.0 potassium 3.4 magnesium 1.8 -AST/ALT: 122/112 AP: 331 -Hepatitis panel pending -Liver ultrasound pending -Stool culture negative -09/09/2023 blood culture x 1: Gram-negative anand Plan: Continue IV antibiotics, follow-up pending cultures and lab results. Increase Levemir to 12 units twice daily, continue SSI. Follow hepatitis panel and liver ultrasound. Replace magnesium and potassium as per protocol. Encourage ambulation in the room. Monitor a.m. labs and imaging. Time spent for clinical assessment, reviewing labs and imaging, physical exam, decision making and documentation greater than 45 minutes Past Medical Family Social History Allergies: Allergies No Known Allergies Allergy (Verified 09/06/23 18:49) Review of Systems ROS: No change since H&P Vital Signs and I&O's Vital Signs: Vital Signs Temperature 97.7 F Temperature 97.8 F Pulse Rate 74 Pulse Rate 83 Pulse Rate 81 Pulse Rate 79 Pulse Rate 76 Pulse Rate 75 Pulse Rate 74 Pulse Rate 92 Respiratory Rate 19 Respiratory Rate 18 Respiratory Rate 20 Respiratory Rate 16 Respiratory Rate 16 Respiratory Rate 16 Respiratory Rate 15 Respiratory Rate 19 Respiratory Rate 12 Respiratory Rate 19 Respiratory Rate 22 Respiratory Rate 19 Blood Pressure 115/66 Blood Pressure 118/79 Blood Pressure 139/87 Blood Pressure 119/82 Blood Pressure 88/64 Blood Pressure 93/59 Blood Pressure 99/68 Blood Pressure 103/71 O2 Sat by Pulse Oximetry 97 O2 Sat by Pulse Oximetry 98 O2 Sat by Pulse Oximetry 99 O2 Sat by Pulse Oximetry 98 O2 Sat by Pulse Oximetry 98 O2 Sat by Pulse Oximetry 96 O2 Sat by Pulse Oximetry 96 O2 Sat by Pulse Oximetry 95 Intake and Output: Intake & Output 09/08/23 09/09/23 09/10/23 09/11/23 23:59 23:59 23:59 23:59 Intake Total 2340 / 2340 1175 / 1175 680 / 680 Output Total 1100 / 1100 2500 / 2500 700 / 700 Balance 1240 / 1240 -1325 / -1325 -20 / -20 Physical Exam Oriented: Normal, Time, Person and Place Eyes: Normal Ear: Normal Nose: Normal Respiratory: Normal Cardiovascular: Normal Auscultation: Bowel Sounds: Normal Palpation: Normal Tenderness: Normal Skin: Normal Musculoskeletal: Normal Psychiatric: Normal Mood Description: Calm Affect: Normal Speech Pattern: Clear and Appropriate Laboratory and Diagnostics 09/11/23 04:06 09/11/23 04:06 Labs: 09/09/23 03:00 Urine,Clean Catch Urine Culture - Preliminary 09/10/23 12:05 Stool Stool Culture - Preliminary 09/10/23 12:05 Stool - Final 09/09/23 20:23 Blood Blood Culture Gram Stain - Final 09/09/23 20:23 Blood Blood Culture - Preliminary 09/09/23 20:30 Blood Blood Culture - Preliminary Laboratory WBC 6.2 X10^3/uL (3.6-10.0) 09/11/23 04:06 RBC 3.72 X10^6/uL (4.7-6.0) L 09/11/23 04:06 Hgb 12.0 g/dL (13.5-18.0) L 09/11/23 04:06 Hct 34.6 % (42.0-54.0) L 09/11/23 04:06 MCV 93.1 fL (80.0-100.0) 09/11/23 04:06 MCH 32.3 pg (27.0-34.0) 09/11/23 04:06 MCHC 34.7 g/dL (33.0-35.0) 09/11/23 04:06 RDW 13.6 % (11.6-16.5) 09/11/23 04:06 Plt Count 208 X10^3/uL (150.0-450.0) 09/11/23 04:06 Plt Count Comment Adequate (ADEQUATE) 09/11/23 04:06 MPV 8.8 fL (7.4-11.0) 09/11/23 04:06 Neut % (Auto) 73.8 % (42.0-75.0) 09/11/23 04:06 Lymph % (Auto) 10.1 % (21.0-51.0) L 09/11/23 04:06 [place] % (Auto) 14.8 % (0.0-13.0) H 09/11/23 04:06 Eos % (Auto) 0.2 % (0.9-2.9) L 09/11/23 04:06 Baso % (Auto) 1.1 % (0.2-1.0) H 09/11/23 04:06 Neut # (Auto) 4.6 x10^3/uL (2.2-4.8) 09/11/23 04:06 Lymph # (Auto) 0.6 X10^3/uL (1.3-2.9) L 09/11/23 04:06 [place] # (Auto) 0.9 x10^3/uL (0.3-0.8) H 09/11/23 04:06 Eos # (Auto) 0.0 x10^3/uL (0.0-0.2) 09/11/23 04:06 Baso # (Auto) 0.1 X10^3/uL (0.0-0.1) 09/11/23 04:06 Absolute Nucleated RBC 0.0 /100WBC 09/11/23 04:06 Total Counted 100 09/11/23 04:06 Neutrophils % (Manual) 63 % (39-76) 09/11/23 04:06 Band Neutrophils % 10 % (0-10) 09/11/23 04:06 Lymphocytes % (Manual) 15 % (13-43) 09/11/23 04:06 Monocytes % (Manual) 11 % (4-9) H 09/11/23 04:06 Basophils % (Manual) 1 % (0-1) 09/11/23 04:06 Atypical Lymphocytes Few 09/11/23 04:06 Plt Morphology Comment Normal (NORMAL) 09/11/23 04:06 RBC Morphology Normal (NORMAL) 09/11/23 04:06 Sample Site Rbra 09/09/23 08:47 ABG pH 7.430 (7.35-7.45) 09/09/23 08:47 ABG pCO2 35.0 mmHg (35.0-45.0) 09/09/23 08:47 ABG pO2 64.0 mmHg (80.0-100.0) L 09/09/23 08:47 ABG HCO3 23.2 mmol/L (22-26) 09/09/23 08:47 ABG O2 Saturation 93.0 % (90-100) 09/09/23 08:47 ABG Base Excess -0.7 mmol/L (-2.0-2.0) 09/09/23 08:47 Stiven Test N/a 09/09/23 08:47 A-a Gradient 42.0 mmHg 09/09/23 08:47 FiO2 21.0 09/09/23 08:47 Blood Gas Comments Pt kirsten well elj 09/09/23 08:47 Sodium 133 mmol/L (136-145) L 09/11/23 04:06 Corrected Sodium 140 mmol/L (136-145) 09/11/23 04:06 Potassium 3.4 mmol/L (3.5-5.1) L 09/11/23 04:06 Chloride 97 mmol/L (98-107) L 09/11/23 04:06 Carbon Dioxide 27.0 mmol/L (21-32) 09/11/23 04:06 BUN 11 mg/dL (7-18) 09/11/23 04:06 Creatinine 0.61 mg/dL (0.70-1.30) L 09/11/23 04:06 Est GFR (MDRD) Af Amer > 60 (>60) 09/11/23 04:06 Est GFR (MDRD) Non-Af > 60 (>60) 09/11/23 04:06 Glucose 403 mg/dL (65-99) H 09/11/23 04:06 POC Glucose (mg/dL) 368 mg/dL (65-99) H 09/11/23 05:44 Hemoglobin A1c > 14.0 % 09/09/23 00:18 Calcium 7.9 mg/dL (8.5-10.1) L 09/11/23 04:06 Corrected Calcium 9.6 mg/dL (8.5-10.1) 09/11/23 04:06 Magnesium 1.8 mg/dL (2.0-2.9) L 09/11/23 04:06 Total Bilirubin 0.30 mg/dL (0.2-1.0) 09/11/23 04:06 AST 122 Units/L (15-37) H 09/11/23 04:06 ALT 112 Units/L (12-78) H 09/11/23 04:06 Alkaline Phosphatase 331 Units/L (46-116) H 09/11/23 04:06 Total Protein 5.7 g/dL (6.4-8.2) L 09/11/23 04:06 Albumin 1.9 g/dL (3.4-5.0) L 09/11/23 04:06 Globulin 3.8 g/dL (2.5-4.5) 09/11/23 04:06 Albumin/Globulin Ratio 0.5 Ratio (1.1-2.1) L 09/11/23 04:06 Specimen Type Clean catch urine 09/09/23 03:00 Urine Color Yellow (YELLOW) 09/09/23 03:00 Urine Appearance Clear (CLEAR) 09/09/23 03:00 Urine pH 5.0 (5.0 - 8.0) 09/09/23 03:00 Ur Specific [place] 1.015 (1.000-1.030) 09/09/23 03:00 Urine Protein 1+ (NEGATIVE) 09/09/23 03:00 Urine Glucose (UA) 4+ (NEGATIVE) 09/09/23 03:00 Urine Ketones 4+ (NEGATIVE) 09/09/23 03:00 Urine Blood 1+ (NEGATIVE) 09/09/23 03:00 Urine Nitrite Positive (NEGATIVE) 09/09/23 03:00 Urine Bilirubin Negative (NEGATIVE) 09/09/23 03:00 Urine Acetone Cancelled 09/09/23 03:00 Urine Urobilinogen Normal (NORMAL) 09/09/23 03:00 Ur Leukocyte Esterase Negative (NEGATIVE) 09/09/23 03:00 Urine RBC 3-5 /HPF (0-3) A 09/09/23 03:00 Urine WBC 20-30 /HPF (0-5) A 09/09/23 03:00 Ur Squamous Epith Cells Few /HPF (NEGATIVE) 09/09/23 03:00 Ur Transition Epith Cell Rare /HPF (NEGATIVE) 09/09/23 03:00 Urine Bacteria 1+ /HPF (NEGATIVE) 09/09/23 03:00 Ur Culture Indicated? Yes/culture set up 09/09/23 03:00 Stl Occult Blood (IFOB) Positive (NEGATIVE) A 09/10/23 12:05 Stool for White Cells Positive (NEGATIVE) A 09/10/23 12:05 Stl C. diff Tox B Gene Negative (NEGATIVE) 09/10/23 12:05 Stl C. diff [id number] Presumptive negative (NEGATIVE) 09/10/23 12:05 Acetone, Semi-Quant Negative (NEGATIVE) 09/10/23 04:00 SARS-CoV-2 (PCR) Negative (NEGATIVE) 09/08/23 22:00 Cryptosporid parvum Ag Negative (NEGATIVE) 09/10/23 12:05 Giardia lamblia Ag Negative (NEGATIVE) 09/10/23 12:05 Influenza Type A (PCR) Negative (NEGATIVE) 09/08/23 22:00 Influenza Type B (PCR) Negative (NEGATIVE) 09/08/23 22:00 RSV (PCR) Negative (NEGATIVE) 09/08/23 22:00 S. pyogenes (TEM-PCR) Not detected (NOT DETECT) 09/08/23 22:00 Plan (1) Gram-negative sepsis: Status: Acute (2) Urinary tract infection: Status: Acute Qualifiers: Hematuria presence: without hematuria Urinary tract infection type: acute cystitis Qualified Code(s): N30.00 - Acute cystitis without hematuria (3) DKA (diabetic ketoacidosis): Status: Acute Qualifiers: Diabetes mellitus complication detail: without coma Diabetes mellitus type: type 1 Qualified Code(s): E10.10 - Type 1 diabetes mellitus with ketoacidosis without coma (4) General weakness: Status: Acute (5) Hypokalemia: Status: Acute Plan: Replace with potassium replacement protocol. (6) Hypomagnesemia: Status: Acute Plan: Replace magnesium with the magnesium replacement and potassium replacement protocol. (7) Elevated LFTs: Status: Acute Plan: The patient's elevated LFTs are likely secondary to gram-negative sepsis. However we will go ahead and check hepatitis panel and a liver ultrasound. (8) Urinary tract infection due to extended-spectrum beta lactamase (ESBL)- producing Klebsiella: Status: Acute Plan: Continue IV Invanz. He has KASSY of less than 0.5 for ertapenem. (9) Type 1 diabetes mellitus: Status: Acute Qualifiers: Diabetes mellitus complication status: with hyperglycemia Qualified Code(s): E10.65 - Type 1 diabetes mellitus with hyperglycemia Plan: Regular insulin sliding scale before every meal and at bedtime.
[2023-09-11] MEDS: MORPHINE SULFATE INJ 2 MG INJ IVP ONE (18:19)
[2023-09-11] MEDS: NS 1,000 ML IV 1,000 ML IV SCH (18:20)
[2023-09-11] MEDS ORDERED: ADVIL TAB 200 MG PO PRN (19:55)
[2023-09-11] MEDS: ADVIL TAB 200 MG PO PRN (20:34)
[2023-09-11] MEDS: LEVEMIR SC SCH (20:35)
[2023-09-12 05:19] LABS: BASOPHILS % (AUTO) 0.4 % (0.2-1.0); EOSINOPHILS % (AUTO) 0.3 % (0.9-2.9); HEMATOCRIT 30.6 % (42.0-54.0); HEMOGLOBIN 10.6 g/dL (13.5-18.0); LYMPHOCYTES # (AUTO) 0.5 X10^3/uL (1.3-2.9); LYMPHOCYTES % (AUTO) 8.4 % (21.0-51.0); MEAN CORPUSCULAR HEMOGLOBIN 32.2 pg (27.0-34.0); MEAN CORPUSCULAR HGB CONC 34.6 g/dL (33.0-35.0); MEAN CORPUSCULAR VOLUME 92.9 fL (80.0-100.0); MEAN PLATELET VOLUME 8.8 fL (7.4-11.0); MONOCYTES # (AUTO) 0.9 x10^3/uL (0.3-0.8); MONOCYTES % (AUTO) 13.5 % (0.0-13.0); NEUTROPHILS # (AUTO) 4.9 x10^3/uL (2.2-4.8); NEUTROPHILS % (AUTO) 77.4 % (42.0-75.0); PLATELET COUNT 217 X10^3/uL (150.0-450.0); RED BLOOD COUNT 3.29 X10^6/uL (4.7-6.0); RED CELL DISTRIBUTION WIDTH 13.4 % (11.6-16.5); WHITE BLOOD COUNT 6.3 X10^3/uL (3.6-10.0)
[2023-09-12 05:31] LABS: ALANINE AMINOTRANSFERASE 79 Units/L (12-78); ALBUMIN 1.7 g/dL (3.4-5.0); ALKALINE PHOSPHATASE 268 Units/L (46-116); ASPARTATE AMINO TRANSFERASE 56 Units/L (15-37); BLOOD UREA NITROGEN 10 mg/dL (7-18); CALCIUM 7.7 mg/dL (8.5-10.1); CARBON DIOXIDE 28.9 mmol/L (21-32); CHLORIDE 98 mmol/L (98-107); COR CA(FOR HYPOALB) 9.5 mg/dL (8.5-10.1); COR NA(FOR HYPERGLY) 136 mmol/L (136-145); CREATININE 0.47 mg/dL (0.70-1.30); GLUCOSE 183 mg/dL (65-99); POTASSIUM 3.5 mmol/L (3.5-5.1); SODIUM 134 mmol/L (136-145); TOTAL PROTEIN 5.3 g/dL (6.4-8.2); eGFR NON BLACK RACES > 60 (>60)
[2023-09-12] MEDS: K-DUR TAB 20 MEQ PO SCH (08:24)
[2023-09-12] MEDS: MAG-OX TAB PO SCH (08:24)
--- NOTE | 2023-09-12 08:44 | US ---
EXAM:LIVERHISTORY:ELEVATED LIVER ENZYMES;COMPARISON:09/06/2019TECHNIQUE:Sarah payne barnes scale and color flow Doppler images of the abdomen were obtained.FINDINGS:Liver measures 14.8 cm. Visible portions of the liver show normal-appearing echotexture without visible focal mass. Gallbladder adequately distended and demonstrates cholelithiasis with borderline wall thickening of 3.3 mm without visible pericholecystic free fluid. Sonographic Gustafson's sign was not reported as positive or negative. Common bile duct 3 mm. Included right kidney shows no hydronephrosis. Pancreas mostly obscured. Flow seen in visible hepatic veins. Hepatopetal flow reported in main portal vein although there are no images demonstrating this. Anterior and posterior branches of intrahepatic right portal vein appear appropriate in flow directionality..IMPRESSION:1. Cholelithiasis with borderline gallbladder wall thickness. Clinical correlation. If there is suspicion of acute cholecystitis, HIDA scan could be considered for confirmation.THIS IS AN ELECTRONICALLY VERIFIED FINAL REPORT09/12/2023 8:40 AM - Electronically signed by Tarun Tony MD
--- NOTE | 2023-09-12 11:16 | PCM.PROG ---
Progress Note Progress Note for Day of Date of Exam: 09/12/23 Subjective Subjective: Patient seen at bedside, he had a temp of 103 last night. He is afebrile this morning. He has been ambulating in the room and going to the bathroom. He has been tolerating PO intake. He does report lower abdominal pain. Denies N/V/D. Denies worsening of pain with eating. Blood Cx 09/09/23 did show Klebsiella. Liver US showed cholelithiasis, possible acute cholecystitis but recommend HIDA. LFTs are trending down. Patient does not have elevated WBC. He remains on IV antibiotics and fluids. Labs and imaging reviewed: -WBC 6.3 hemoglobin 10.6 potassium 3.5 magnesium 1.9 -AST/ALT: 56/79 AP: 268 -Hepatitis panel pending -Liver: cholelithiasis, bordering acute cholecystitis. Recommend HIDA. -Stool culture negative -09/09/2023 blood culture x 1: Klebsiella ESBL -09/11/23 blood Cx pending Plan: Continue IV antibiotics, follow-up pending cultures and lab results. Increase I VF to 125cc/hr. HIDA scan ordered for AM. NPO past midnight. Continue pain control. Continue Levemir and SSI. Replace magnesium and potassium as per protocol. Encourage ambulation in the room. Monitor a.m. labs and imaging. Patient stable to be transferred out of ICU to floor. Time spent for clinical assessment, reviewing labs and imaging, physical exam, decision making and documentation greater than 45 minutes Past Medical Family Social History Allergies: Allergies No Known Allergies Allergy (Verified 09/06/23 18:49) Review of Systems ROS: No change since H&P Vital Signs and I&O's Vital Signs: Vital Signs Temperature 97.4 F Temperature 98.5 F Pulse Rate 74 Pulse Rate 77 Pulse Rate 75 Pulse Rate 76 Pulse Rate 73 Pulse Rate 71 Pulse Rate 72 Respiratory Rate 11 Respiratory Rate 16 Respiratory Rate 12 Respiratory Rate 14 Respiratory Rate 12 Respiratory Rate 12 Respiratory Rate 14 Blood Pressure 108/55 Blood Pressure 122/77 Blood Pressure 90/54 Blood Pressure 91/55 Blood Pressure 104/71 Blood Pressure 92/65 Blood Pressure 95/66 O2 Sat by Pulse Oximetry 96 O2 Sat by Pulse Oximetry 95 O2 Sat by Pulse Oximetry 95 O2 Sat by Pulse Oximetry 92 O2 Sat by Pulse Oximetry 96 O2 Sat by Pulse Oximetry 95 O2 Sat by Pulse Oximetry 96 Intake and Output: Intake & Output 09/09/23 09/10/23 09/11/23 09/12/23 23:59 23:59 23:59 23:59 Intake Total 2340 / 2340 1175 / 1175 2478 / 2478 994 / 994 Output Total 1100 / 1100 2500 / 2500 2000 / 2000 100 / 100 Balance 1240 / 1240 -1325 / -1325 478 / 478 894 / 894 Physical Exam Oriented: Normal, Time, Person and Place Eyes: Normal Ear: Normal Nose: Normal Respiratory: Normal Cardiovascular: Normal Auscultation: Bowel Sounds: Normal Tenderness: RLQ, LLQ, Periumbilical and Mild Skin: Normal Musculoskeletal: Normal Psychiatric: Normal Mood Description: Calm Affect: Normal Speech Pattern: Clear and Appropriate Laboratory and Diagnostics 09/12/23 04:06 09/12/23 04:06 Labs: 09/09/23 20:23 Blood Blood Culture Gram Stain - Final 09/09/23 20:23 Blood Blood Culture - Final Klebsiella Pneumo Esbl 09/10/23 12:05 Stool Stool Culture - Final 09/10/23 12:05 Stool - Final 09/09/23 03:00 Urine,Clean Catch Urine Culture - Preliminary 09/09/23 20:30 Blood Blood Culture - Preliminary Laboratory WBC 6.3 X10^3/uL (3.6-10.0) 09/12/23 04:06 RBC 3.29 X10^6/uL (4.7-6.0) L 09/12/23 04:06 Hgb 10.6 g/dL (13.5-18.0) L 09/12/23 04:06 Hct 30.6 % (42.0-54.0) L 09/12/23 04:06 MCV 92.9 fL (80.0-100.0) 09/12/23 04:06 MCH 32.2 pg (27.0-34.0) 09/12/23 04:06 MCHC 34.6 g/dL (33.0-35.0) 09/12/23 04:06 RDW 13.4 % (11.6-16.5) 09/12/23 04:06 Plt Count 217 X10^3/uL (150.0-450.0) 09/12/23 04:06 Plt Count Comment Adequate (ADEQUATE) 09/11/23 04:06 MPV 8.8 fL (7.4-11.0) 09/12/23 04:06 Neut % (Auto) 77.4 % (42.0-75.0) H 09/12/23 04:06 Lymph % (Auto) 8.4 % (21.0-51.0) L 09/12/23 04:06 [place] % (Auto) 13.5 % (0.0-13.0) H 09/12/23 04:06 Eos % (Auto) 0.3 % (0.9-2.9) L 09/12/23 04:06 Baso % (Auto) 0.4 % (0.2-1.0) 09/12/23 04:06 Neut # (Auto) 4.9 x10^3/uL (2.2-4.8) H 09/12/23 04:06 Lymph # (Auto) 0.5 X10^3/uL (1.3-2.9) L 09/12/23 04:06 [place] # (Auto) 0.9 x10^3/uL (0.3-0.8) H 09/12/23 04:06 Eos # (Auto) 0.0 x10^3/uL (0.0-0.2) 09/12/23 04:06 Baso # (Auto) 0.0 X10^3/uL (0.0-0.1) 09/12/23 04:06 Absolute Nucleated RBC 0.0 /100WBC 09/12/23 04:06 Total Counted 100 09/11/23 04:06 Neutrophils % (Manual) 63 % (39-76) 09/11/23 04:06 Band Neutrophils % 10 % (0-10) 09/11/23 04:06 Lymphocytes % (Manual) 15 % (13-43) 09/11/23 04:06 Monocytes % (Manual) 11 % (4-9) H 09/11/23 04:06 Basophils % (Manual) 1 % (0-1) 09/11/23 04:06 Atypical Lymphocytes Few 09/11/23 04:06 Plt Morphology Comment Normal (NORMAL) 09/11/23 04:06 RBC Morphology Normal (NORMAL) 09/11/23 04:06 Sample Site [facility] 09/09/23 08:47 ABG pH 7.430 (7.35-7.45) 09/09/23 08:47 ABG pCO2 35.0 mmHg (35.0-45.0) 09/09/23 08:47 ABG pO2 64.0 mmHg (80.0-100.0) L 09/09/23 08:47 ABG HCO3 23.2 mmol/L (22-26) 09/09/23 08:47 ABG O2 Saturation 93.0 % (90-100) 09/09/23 08:47 ABG Base Excess -0.7 mmol/L (-2.0-2.0) 09/09/23 08:47 Stiven Test N/a 09/09/23 08:47 A-a Gradient 42.0 mmHg 09/09/23 08:47 FiO2 21.0 09/09/23 08:47 Blood Gas Comments Pt kirsten well elj 09/09/23 08:47 Sodium 134 mmol/L (136-145) L 09/12/23 04:06 Corrected Sodium 136 mmol/L (136-145) 09/12/23 04:06 Potassium 3.5 mmol/L (3.5-5.1) 09/12/23 04:06 Chloride 98 mmol/L (98-107) 09/12/23 04:06 Carbon Dioxide 28.9 mmol/L (21-32) 09/12/23 04:06 BUN 10 mg/dL (7-18) 09/12/23 04:06 Creatinine 0.47 mg/dL (0.70-1.30) L 09/12/23 04:06 Est GFR (MDRD) Af Amer > 60 (>60) 09/12/23 04:06 Est GFR (MDRD) Non-Af > 60 (>60) 09/12/23 04:06 Glucose 183 mg/dL (65-99) H 09/12/23 04:06 POC Glucose (mg/dL) 220 mg/dL (65-99) H 09/12/23 10:38 Hemoglobin A1c > 14.0 % 09/09/23 00:18 Lactic Acid 1.5 mmol/L (0.4-2.0) 09/11/23 20:07 Calcium 7.7 mg/dL (8.5-10.1) L 09/12/23 04:06 Corrected Calcium 9.5 mg/dL (8.5-10.1) 09/12/23 04:06 Magnesium 1.9 mg/dL (2.0-2.9) L 09/12/23 04:06 Total Bilirubin 0.30 mg/dL (0.2-1.0) 09/12/23 04:06 AST 56 Units/L (15-37) H 09/12/23 04:06 ALT 79 Units/L (12-78) H 09/12/23 04:06 Alkaline Phosphatase 268 Units/L (46-116) H 09/12/23 04:06 Total Protein 5.3 g/dL (6.4-8.2) L 09/12/23 04:06 Albumin 1.7 g/dL (3.4-5.0) L 09/12/23 04:06 Globulin 3.6 g/dL (2.5-4.5) 09/12/23 04:06 Albumin/Globulin Ratio 0.5 Ratio (1.1-2.1) L 09/12/23 04:06 Specimen Type Clean catch urine 09/09/23 03:00 Urine Color Yellow (YELLOW) 09/09/23 03:00 Urine Appearance Clear (CLEAR) 09/09/23 03:00 Urine pH 5.0 (5.0 - 8.0) 09/09/23 03:00 Ur Specific [place] 1.015 (1.000-1.030) 09/09/23 03:00 Urine Protein 1+ (NEGATIVE) 09/09/23 03:00 Urine Glucose (UA) 4+ (NEGATIVE) 09/09/23 03:00 Urine Ketones 4+ (NEGATIVE) 09/09/23 03:00 Urine Blood 1+ (NEGATIVE) 09/09/23 03:00 Urine Nitrite Positive (NEGATIVE) 09/09/23 03:00 Urine Bilirubin Negative (NEGATIVE) 09/09/23 03:00 Urine Acetone Cancelled 09/09/23 03:00 Urine Urobilinogen Normal (NORMAL) 09/09/23 03:00 Ur Leukocyte Esterase Negative (NEGATIVE) 09/09/23 03:00 Urine RBC 3-5 /HPF (0-3) A 09/09/23 03:00 Urine WBC 20-30 /HPF (0-5) A 09/09/23 03:00 Ur Squamous Epith Cells Few /HPF (NEGATIVE) 09/09/23 03:00 Ur Transition Epith Cell Rare /HPF (NEGATIVE) 09/09/23 03:00 Urine Bacteria 1+ /HPF (NEGATIVE) 09/09/23 03:00 Ur Culture Indicated? Yes/culture set up 09/09/23 03:00 Stl Occult Blood (IFOB) Positive (NEGATIVE) A 09/10/23 12:05 Stool for White Cells Positive (NEGATIVE) A 09/10/23 12:05 Stl C. diff Tox B Gene Negative (NEGATIVE) 09/10/23 12:05 Stl C. diff [id number] Presumptive negative (NEGATIVE) 09/10/23 12:05 Acetone, Semi-Quant Negative (NEGATIVE) 09/10/23 04:00 SARS-CoV-2 (PCR) Negative (NEGATIVE) 09/08/23 22:00 Cryptosporid parvum Ag Negative (NEGATIVE) 09/10/23 12:05 Giardia lamblia Ag Negative (NEGATIVE) 09/10/23 12:05 Influenza Type A (PCR) Negative (NEGATIVE) 09/08/23 22:00 Influenza Type B (PCR) Negative (NEGATIVE) 09/08/23 22:00 RSV (PCR) Negative (NEGATIVE) 09/08/23 22:00 S. pyogenes (TEM-PCR) Not detected (NOT DETECT) 09/08/23 22:00 Plan (1) Gram-negative sepsis: Status: Acute (2) Cholelithiasis: Status: Acute Qualifiers: Biliary obstruction: without biliary obstruction Cholecystitis presence: without cholecystitis Cholelithiasis location: gallbladder Qualified Code(s): K80.20 - Calculus of gallbladder without cholecystitis without obstruction (3) Urinary tract infection: Status: Acute Qualifiers: Hematuria presence: without hematuria Urinary tract infection type: acute cystitis Qualified Code(s): N30.00 - Acute cystitis without hematuria (4) DKA (diabetic ketoacidosis): Status: Acute Qualifiers: Diabetes mellitus complication detail: without coma Diabetes mellitus type: type 1 Qualified Code(s): E10.10 - Type 1 diabetes mellitus with ketoacidosis without coma (5) General weakness: Status: Acute Plan: Monitor for improvement with IV insulin drip and IV fluid hydration along with IV antibiotics. (6) Hypokalemia: Status: Acute Plan: Replace with potassium replacement protocol. (7) Hypomagnesemia: Status: Acute Plan: Replace magnesium with the magnesium replacement and potassium replacement protocol. (8) Elevated LFTs: Status: Acute (9) Urinary tract infection due to extended-spectrum beta lactamase (ESBL)- producing Klebsiella: Status: Acute Plan: Continue IV Invanz. He has KASSY of less than 0.5 for ertapenem. (10) Type 1 diabetes mellitus: Status: Acute Qualifiers: Diabetes mellitus complication status: with hyperglycemia Qualified Code(s): E10.65 - Type 1 diabetes mellitus with hyperglycemia Plan: Regular insulin sliding scale before every meal and at bedtime.
[2023-09-12] MEDS: CONSULT PHARMACY - POTASSIUM & MAGNESIUM XX SCH (13:08)
[2023-09-13 05:03] LABS: EOSINOPHILS # (AUTO) 0.1 x10^3/uL (0.0-0.2); WHITE BLOOD COUNT 4.4 X10^3/uL (3.6-10.0)
[2023-09-13 05:12] LABS: ALANINE AMINOTRANSFERASE 65 Units/L (12-78); ALBUMIN 1.8 g/dL (3.4-5.0); ALKALINE PHOSPHATASE 291 Units/L (46-116); ASPARTATE AMINO TRANSFERASE 47 Units/L (15-37); BLOOD UREA NITROGEN 13 mg/dL (7-18); CARBON DIOXIDE 31.4 mmol/L (21-32); CHLORIDE 99 mmol/L (98-107); COR CA(FOR HYPOALB) 9.8 mg/dL (8.5-10.1); COR NA(FOR HYPERGLY) 138 mmol/L (136-145); CREATININE 0.46 mg/dL (0.70-1.30); GLUCOSE 198 mg/dL (65-99); POTASSIUM 3.5 mmol/L (3.5-5.1); SODIUM 136 mmol/L (136-145); TOTAL PROTEIN 5.5 g/dL (6.4-8.2); eGFR NON BLACK RACES > 60 (>60)
[2023-09-13 05:27] LABS: BASOPHILS % (AUTO) 0 % (0.2-1.0); EOSINOPHILS % (AUTO) 1.8 % (0.9-2.9); HEMATOCRIT 32.1 % (42.0-54.0); LYMPHOCYTES # (AUTO) 1.2 X10^3/uL (1.3-2.9); LYMPHOCYTES % (AUTO) 27.7 % (21.0-51.0); MEAN CORPUSCULAR HEMOGLOBIN 31.9 pg (27.0-34.0); MEAN CORPUSCULAR HGB CONC 34.1 g/dL (33.0-35.0); MEAN CORPUSCULAR VOLUME 93.4 fL (80.0-100.0); MEAN PLATELET VOLUME 7.8 fL (7.4-11.0); MONOCYTES # (AUTO) 0.7 x10^3/uL (0.3-0.8); MONOCYTES % (AUTO) 15.6 % (0.0-13.0); NEUTROPHILS # (AUTO) 2.4 x10^3/uL (2.2-4.8); NEUTROPHILS % (AUTO) 54.9 % (42.0-75.0); PLATELET COUNT 276 X10^3/uL (150.0-450.0); RED BLOOD COUNT 3.44 X10^6/uL (4.7-6.0); RED CELL DISTRIBUTION WIDTH 13.3 % (11.6-16.5)
[2023-09-13 06:12] LABS: PLATELET MORPHOLOGY COMMENT NORMAL (NORMAL)
--- NOTE | 2023-09-13 13:09 | PCM.PROG ---
Progress Note Progress Note for Day of Date of Exam: 09/13/23 Subjective Subjective: The patient is alert and awake this morning. He reports he is feeling better today. He is still having some right upper quadrant pain. We did have an training development specialist this morning and he tells her that he has been having some intermittent nausea vomiting diarrhea with fatty foods. His liver u ltrasound showed a thickened gallbladder wall when he is getting a HIDA scan today at noon. We will consult general surgery and follow-up with the results. He is receiving IV antibiotics for septicemia secondary to Klebsiella pneumoniae and positive urine for Klebsiella oxytoca. Past Medical Family Social History Allergies: Allergies No Known Allergies Allergy (Verified 09/06/23 18:49) Review of Systems ROS: No change since H&P Vital Signs and I&O's Vital Signs: Vital Signs Temperature 98.2 F Temperature 98.1 F Pulse Rate [Right] 69 Pulse Rate [Right] 67 Respiratory Rate 17 Respiratory Rate 18 Blood Pressure [Right Arm] 114/74 Blood Pressure [Right Arm] 104/60 O2 Sat by Pulse Oximetry 95 O2 Sat by Pulse Oximetry 98 Intake and Output: Intake & Output 09/11/23 09/12/23 09/13/23 09/14/23 11:59 11:59 11:59 11:59 Intake Total 1322 / 1322 2792 / 2792 2657 / 2657 Output Total 2375 / 2375 1400 / 1400 1850 / 1850 Balance -1053 / -1053 1392 / 1392 807 / 807 Physical Exam Oriented: Normal, Time, Person and Place Eyes: Normal Ear: Normal Nose: Normal Respiratory: Normal Cardiovascular: Normal Auscultation: Bowel Sounds: Normal Tenderness: RLQ, LLQ, Periumbilical and Mild Skin: Normal Musculoskeletal: Normal Psychiatric: Normal Mood Description: Calm Affect: Normal Speech Pattern: Clear and Appropriate Laboratory and Diagnostics 09/13/23 04:28 09/13/23 04:28 Labs: 09/09/23 03:00 Urine,Clean Catch Urine Culture - Final Klebsiella Oxytoca Esbl 09/11/23 20:00 Blood Blood Culture - Preliminary 09/11/23 20:07 Blood Blood Culture - Preliminary 09/09/23 20:23 Blood Blood Culture Gram Stain - Final 09/09/23 20:23 Blood Blood Culture - Final Klebsiella Pneumo Esbl 09/10/23 12:05 Stool Stool Culture - Final 09/10/23 12:05 Stool - Final 09/09/23 20:30 Blood Blood Culture - Preliminary Laboratory WBC 4.4 X10^3/uL (3.6-10.0) 09/13/23 04:28 RBC 3.44 X10^6/uL (4.7-6.0) L 09/13/23 04:28 Hgb 11.0 g/dL (13.5-18.0) L 09/13/23 04:28 Hct 32.1 % (42.0-54.0) L 09/13/23 04:28 MCV 93.4 fL (80.0-100.0) 09/13/23 04: MCH 31.9 pg (27.0-34.0) 09/13/23 04: MCHC 34.1 g/dL (33.0-35.0) 09/13/23 04: RDW 13.3 % (11.6-16.5) 09/13/23 04:28 Plt Count 276 X10^3/uL (150.0-450.0) 09/13/23 04:28 Plt Count Comment Adequate (ADEQUATE) 09/13/23 04: MPV 7.8 fL (7.4-11.0) 09/13/23 04:28 Neut % (Auto) 54.9 % (42.0-75.0) 09/13/23 04: Lymph % (Auto) 27.7 % (21.0-51.0) 09/13/23 04: [place] % (Auto) 15.6 % (0.0-13.0) H 09/13/23 04:28 Eos % (Auto) 1.8 % (0.9-2.9) 09/13/23 04:28 Baso % (Auto) 0 % (0.2-1.0) L 09/13/23 04:28 Neut # (Auto) 2.4 x10^3/uL (2.2-4.8) 09/13/23 04:28 Lymph # (Auto) 1.2 X10^3/uL (1.3-2.9) L 09/13/23 04:28 [place] # (Auto) 0.7 x10^3/uL (0.3-0.8) 09/13/23 04:28 Eos # (Auto) 0.1 x10^3/uL (0.0-0.2) 09/13/23 04:28 Baso # (Auto) 0.0 X10^3/uL (0.0-0.1) 09/13/23 04:28 Absolute Nucleated RBC 0.1 /100WBC 09/13/23 04:28 Total Counted 100 09/11/23 04:06 Neutrophils % (Manual) 63 % (39-76) 09/11/23 04:06 Band Neutrophils % 10 % (0-10) 09/11/23 04:06 Lymphocytes % (Manual) 15 % (13-43) 09/11/23 04:06 Monocytes % (Manual) 11 % (4-9) H 09/11/23 04:06 Basophils % (Manual) 1 % (0-1) 09/11/23 04:06 Atypical Lymphocytes Few 09/11/23 04:06 Plt Morphology Comment Normal (NORMAL) 09/13/23 04:28 RBC Morphology Normal (NORMAL) 09/13/23 04:28 Sample Site [facility] 09/09/23 08:47 ABG pH 7.430 (7.35-7.45) 09/09/23 08:47 ABG pCO2 35.0 mmHg (35.0-45.0) 09/09/23 08:47 ABG pO2 64.0 mmHg (80.0-100.0) L 09/09/23 08:47 ABG HCO3 23.2 mmol/L (22-26) 09/09/23 08:47 ABG O2 Saturation 93.0 % (90-100) 09/09/23 08:47 ABG Base Excess -0.7 mmol/L (-2.0-2.0) 09/09/23 08:47 Stiven Test N/a 09/09/23 08:47 A-a Gradient 42.0 mmHg 09/09/23 08:47 FiO2 21.0 09/09/23 08:47 Blood Gas Comments Pt kirsten well elj 09/09/23 08:47 Sodium 136 mmol/L (136-145) 09/13/23 04:28 Corrected Sodium 138 mmol/L (136-145) 09/13/23 04:28 Potassium 3.5 mmol/L (3.5-5.1) 09/13/23 04:28 Chloride 99 mmol/L (98-107) 09/13/23 04:28 Carbon Dioxide 31.4 mmol/L (21-32) 09/13/23 04:28 BUN 13 mg/dL (7-18) 09/13/23 04:28 Creatinine 0.46 mg/dL (0.70-1.30) L 09/13/23 04:28 Est GFR (MDRD) Af Amer > 60 (>60) 09/13/23 04:28 Est GFR (MDRD) Non-Af > 60 (>60) 09/13/23 04:28 Glucose 198 mg/dL (65-99) H 09/13/23 04:28 POC Glucose (mg/dL) 152 mg/dL (65-99) H 09/13/23 11:23 Hemoglobin A1c > 14.0 % 09/09/23 00:18 Lactic Acid 1.5 mmol/L (0.4-2.0) 09/11/23 20:07 Calcium 8.0 mg/dL (8.5-10.1) L 09/13/23 04:28 Corrected Calcium 9.8 mg/dL (8.5-10.1) 09/13/23 04:28 Magnesium 2.0 mg/dL (2.0-2.9) 09/13/23 04:28 Total Bilirubin 0.30 mg/dL (0.2-1.0) 09/13/23 04:28 AST 47 Units/L (15-37) H 09/13/23 04:28 ALT 65 Units/L (12-78) 09/13/23 04:28 Alkaline Phosphatase 291 Units/L (46-116) H 09/13/23 04:28 Total Protein 5.5 g/dL (6.4-8.2) L 09/13/23 04:28 Albumin 1.8 g/dL (3.4-5.0) L 09/13/23 04:28 Globulin 3.7 g/dL (2.5-4.5) 09/13/23 04:28 Albumin/Globulin Ratio 0.5 Ratio (1.1-2.1) L 09/13/23 04:28 Specimen Type Clean catch urine 09/09/23 03:00 Urine Color Yellow (YELLOW) 09/09/23 03:00 Urine Appearance Clear (CLEAR) 09/09/23 03:00 Urine pH 5.0 (5.0 - 8.0) 09/09/23 03:00 Ur Specific [place] 1.015 (1.000-1.030) 09/09/23 03:00 Urine Protein 1+ (NEGATIVE) 09/09/23 03:00 Urine Glucose (UA) 4+ (NEGATIVE) 09/09/23 03:00 Urine Ketones 4+ (NEGATIVE) 09/09/23 03:00 Urine Blood 1+ (NEGATIVE) 09/09/23 03:00 Urine Nitrite Positive (NEGATIVE) 09/09/23 03:00 Urine Bilirubin Negative (NEGATIVE) 09/09/23 03:00 Urine Acetone Cancelled 09/09/23 03:00 Urine Urobilinogen Normal (NORMAL) 09/09/23 03:00 Ur Leukocyte Esterase Negative (NEGATIVE) 09/09/23 03:00 Urine RBC 3-5 /HPF (0-3) A 09/09/23 03:00 Urine WBC 20-30 /HPF (0-5) A 09/09/23 03:00 Ur Squamous Epith Cells Few /HPF (NEGATIVE) 09/09/23 03:00 Ur Transition Epith Cell Rare /HPF (NEGATIVE) 09/09/23 03:00 Urine Bacteria 1+ /HPF (NEGATIVE) 09/09/23 03:00 Ur Culture Indicated? Yes/culture set up 09/09/23 03:00 Stl Occult Blood (IFOB) Positive (NEGATIVE) A 09/10/23 12:05 Stool for White Cells Positive (NEGATIVE) A 09/10/23 12:05 Stl C. diff Tox B Gene Negative (NEGATIVE) 09/10/23 12:05 Stl C. diff [id number] Presumptive negative (NEGATIVE) 09/10/23 12:05 Acetone, Semi-Quant Negative (NEGATIVE) 09/10/23 04:00 SARS-CoV-2 (PCR) Negative (NEGATIVE) 09/08/23 22:00 Cryptosporid parvum Ag Negative (NEGATIVE) 09/10/23 12:05 Giardia lamblia Ag Negative (NEGATIVE) 09/10/23 12:05 Influenza Type A (PCR) Negative (NEGATIVE) 09/08/23 22:00 Influenza Type B (PCR) Negative (NEGATIVE) 09/08/23 22:00 RSV (PCR) Negative (NEGATIVE) 09/08/23 22:00 S. pyogenes (TEM-PCR) Not detected (NOT DETECT) 09/08/23 22:00 Plan (1) Gram-negative sepsis: Status: Acute Plan: Follow-up blood cultures. I suspect the patient likely has urosepsis secondary to ESBL Klebsiella pneumonia. It is sensitive to Invanz. (2) Cholelithiasis: Status: Acute Qualifiers: Cholelithiasis location: gallbladder Cholecystitis presence: without cholecystitis Biliary obstruction: without biliary obstruction Qualified Code(s): K80.20 - Calculus of gallbladder without cholecystitis without obstruction (3) Urinary tract infection: Status: Acute Qualifiers: Hematuria presence: without hematuria Urinary tract infection type: acute cystitis Qualified Code(s): N30.00 - Acute cystitis without hematuria Plan: IV Rocephin. Follow-up urine culture and sensitivity report available. Start Invanz 1 g IV daily. (4) DKA (diabetic ketoacidosis): Status: Acute Qualifiers: Diabetes mellitus complication detail: without coma Diabetes mellitus type: type 1 Qualified Code(s): E10.10 - Type 1 diabetes mellitus with ketoacidosis without coma Plan: Insulin drip per protocol. Check daily ABGs and serum acetone's un til he is serum acetone negative. (5) General weakness: Status: Acute Plan: Monitor for improvement with IV insulin drip and IV fluid hydration along with IV antibiotics. (6) Hypokalemia: Status: Acute Plan: Replace with potassium replacement protocol. (7) Hypomagnesemia: Status: Acute Plan: Replace magnesium with the magnesium replacement and potassium replacement protocol. (8) Elevated LFTs: Status: Acute Plan: The patient's elevated LFTs are likely secondary to gram-negative sepsis. However we will go ahead and check hepatitis panel and a liver ultra sound. (9) Urinary tract infection due to extended-spectrum beta lactamase (ESBL)- producing Klebsiella: Status: Acute Plan: Continue IV Invanz. He has KASSY of less than 0.5 for ertapenem. (10) Type 1 diabetes mellitus: Status: Acute Qualifiers: Diabetes mellitus complication status: with hyperglycemia Qualified Code(s): E10.65 - Type 1 diabetes mellitus with hyperglycemia Plan: Regular insulin sliding scale before every meal and at bedtime. (11) UTI due to Klebsiella species: Status: Acute Plan: The oxytoca that was in the urine culture is sensitive to IV ertapenem with a KASSY of less than 0.5 (12) Thickening of wall of gallbladder: Status: Acute Plan: HIDA scan today at noon consult general surgery.
--- NOTE | 2023-09-13 14:48 | NM ---
EXAM:HIDA/HEPATOBILIARY SCAN W/EFHISTORY:cholelithiasis; 6.5mCi 99mTc CholetecCOMPARISON:None available.TECHNIQUE:Multiple scintigraphic images of the abdomen were obtained the intravenous administration of 6.5 mCi of technetium labeled Choletec.FINDINGS:Homogeneous uptake of radiotracer is seen throughout the liver.The intrabiliary ductal system is not appreciably dilated.The common hepatic and common bile duct are not dilated and show a normal biliary-bowel transit.The gallbladder is observed to fill normally without evidence for cystic duct obstruction to suggest acute cholecystitis.IMPRESSION:No evidence of acute cholecystitis or acute hepatobiliary disease or dysfunction in this patient.THIS IS AN ELECTRONICALLY VERIFIED FINAL REPORT09/13/2023 2:45 PM - Electronically signed by Jose Alfredo Salinas
[2023-09-13] MEDS: ALBUMIN HUMAN 25%- 100 ML 100 ML IV SCH (16:16)
[2023-09-14 06:32] LABS: BASOPHILS # (AUTO) 0.1 X10^3/uL (0.0-0.1); BASOPHILS % (AUTO) 2.8 % (0.2-1.0); EOSINOPHILS # (AUTO) 0.1 x10^3/uL (0.0-0.2); EOSINOPHILS % (AUTO) 1.7 % (0.9-2.9); HEMATOCRIT 30.6 % (42.0-54.0); HEMOGLOBIN 10.5 g/dL (13.5-18.0); LYMPHOCYTES # (AUTO) 1.1 X10^3/uL (1.3-2.9); LYMPHOCYTES % (AUTO) 25.6 % (21.0-51.0); MEAN CORPUSCULAR HEMOGLOBIN 31.9 pg (27.0-34.0); MEAN CORPUSCULAR HGB CONC 34.4 g/dL (33.0-35.0); MEAN CORPUSCULAR VOLUME 92.8 fL (80.0-100.0); MEAN PLATELET VOLUME 7.7 fL (7.4-11.0); MONOCYTES # (AUTO) 0.6 x10^3/uL (0.3-0.8); MONOCYTES % (AUTO) 13.7 % (0.0-13.0); NEUTROPHILS # (AUTO) 2.3 x10^3/uL (2.2-4.8); NEUTROPHILS % (AUTO) 56.2 % (42.0-75.0); PLATELET COUNT 303 X10^3/uL (150.0-450.0); RED BLOOD COUNT 3.29 X10^6/uL (4.7-6.0); RED CELL DISTRIBUTION WIDTH 13.6 % (11.6-16.5); WHITE BLOOD COUNT 4.2 X10^3/uL (3.6-10.0)
[2023-09-14 06:41] LABS: ALANINE AMINOTRANSFERASE 49 Units/L (12-78); ALBUMIN 2.1 g/dL (3.4-5.0); ALKALINE PHOSPHATASE 245 Units/L (46-116); ASPARTATE AMINO TRANSFERASE 26 Units/L (15-37); BLOOD UREA NITROGEN 13 mg/dL (7-18); CALCIUM 7.9 mg/dL (8.5-10.1); CARBON DIOXIDE 29.3 mmol/L (21-32); CHLORIDE 98 mmol/L (98-107); COR CA(FOR HYPOALB) 9.4 mg/dL (8.5-10.1); COR NA(FOR HYPERGLY) 139 mmol/L (136-145); CREATININE 0.54 mg/dL (0.70-1.30); GLUCOSE 267 mg/dL (65-99); POTASSIUM 3.2 mmol/L (3.5-5.1); SODIUM 135 mmol/L (136-145); TOTAL PROTEIN 5.6 g/dL (6.4-8.2); eGFR NON BLACK RACES > 60 (>60)
[2023-09-14] MEDS ORDERED: CONSULT PHARMACY - POTASSIUM & MAGNESIUM XX SCH ×2 (08:00)
[2023-09-14] MEDS: NS 1,000 ML IV 1,000 ML IV SCH (08:18)
[2023-09-14] MEDS: K-DUR TAB 20 MEQ PO SCH (08:29)
--- NOTE | 2023-09-14 13:09 | CT ---
EXAM:ABDCMEN/PELVIS WITH CONHISTORY:abd pain;COMPARISON:CT abdomen and pelvis 09/06/2023TECHNIQUE:Multiple CT axial images of the abdomen and pelvis were obtained with IV contrast. Coronal and sagittal images were reconstructed. Dose reduction techniques included Automated Exposure Control (AEC) and adjustment of mA and kV.FINDINGS:Urinary bladder is moderately distended with a craniocaudal dimension of 14 cm. This extends almost to the level of the umbilicus. No significant wall thickening or perivesical edema.Stone in the upper pole left kidney measures 5 mm. Renal enhancement is uniform and symmetric with no solid mass. There is no hydronephrosis or significant perirenal edema. The ureters are not dilated.Small bilateral pleural effusions are new. Dependent basilar atelectasis is new.Liver, gallbladder, spleen, adrenal glands, and pancreas are unremarkable.The bowel is not dilated. There is no wall thickening in the bowel or edema around the bowel. Large stool volume in the colon suggests constipation. Most of this is in the right colon and transverse colon.Old healed left rib fractures.IMPRESSION:1. Nonobstructing left renal calculus2. Moderate urinary bladder distention3. Findings suggesting constipation4. New pleural effusions and basilar atelectasisTHIS IS AN ELECTRONICALLY VERIFIED FINAL REPORT09/14/2023 1:06 PM - Electronically signed by Rock Lopez MD
--- NOTE | 2023-09-14 16:21 | PCM.PROG ---
Progress Note Progress Note for Day of Date of Exam: 09/14/23 Subjective Subjective: The patient is alert and awake this morning. He had no acute problems overnight. He is still complaining of right lateral abdominal pain but no right upper quadrant pain. CT scan of his abdomen and pelvis with IV and p.o. contrast shows that he has constipation mostly on the right side of his abdomen. There was some mild pleural effusions and mildly distended urinary bladder but no acute problems. His inflammatory panels are elevated and we will repeat those tomorrow to see if they are improving. We used an silk screen processor over the telephone this morning to communicate with the patient. He states that he does have intermittent diarrhea and still having it at this time. We are still treating his urosepsis/septicemia with IV Invanz. Will recheck the patient again tomorrow if he continues to improve we will plan on changing him over to oral Levaquin and discharged him home in the next day or 2. Past Medical Family Social History Allergies: Allergies No Known Allergies Allergy (Verified 09/06/23 18:49) Review of Systems ROS: No change since H&P Vital Signs and I&O's Vital Signs: Vital Signs Temperature 97.5 F Pulse Rate [Right] 74 Respiratory Rate 18 Blood Pressure [Right Arm] 152/90 O2 Sat by Pulse Oximetry 96 Intake and Output: Intake & Output 09/12/23 09/13/23 09/14/23 09/15/23 11:59 11:59 11:59 11:59 Intake Total 2792 / 2792 2657 / 2657 3592 / 3592 Output Total 1400 / 1400 1850 / 1850 2900 / 2900 Balance 1392 / 1392 807 / 807 692 / 692 Physical Exam Oriented: Normal, Time, Person and Place Eyes: Normal Ear: Normal Nose: Normal Respiratory: Normal Cardiovascular: Normal Auscultation: Bowel Sounds: Normal Tenderness: RLQ, LLQ, Periumbilical and Mild Skin: Normal Musculoskeletal: Normal Psychiatric: Normal Mood Description: Calm Affect: Normal Speech Pattern: Clear and Appropriate Laboratory and Diagnostics 09/14/23 05:40 09/14/23 05:40 Labs: 09/09/23 03:00 Urine,Clean Catch Urine Culture - Final Klebsiella Oxytoca Esbl 09/11/23 20:00 Blood Blood Culture - Preliminary 09/11/23 20:07 Blood Blood Culture - Preliminary 09/09/23 20:23 Blood Blood Culture Gram Stain - Final 09/09/23 20:23 Blood Blood Culture - Final Klebsiella Pneumo Esbl 09/10/23 12:05 Stool Stool Culture - Final 09/10/23 12:05 Stool - Final 09/09/23 20:30 Blood Blood Culture - Preliminary Laboratory WBC 4.2 X10^3/uL (3.6-10.0) 09/14/23 05:40 RBC 3.29 X10^6/uL (4.7-6.0) L 09/14/23 05:40 Hgb 10.5 g/dL (13.5-18.0) L 09/14/23 05:40 Hct 30.6 % (42.0-54.0) L 09/14/23 05:40 MCV 92.8 fL (80.0-100.0) 09/14/23 05:40 MCH 31.9 pg (27.0-34.0) 09/14/23 05:40 MCHC 34.4 g/dL (33.0-35.0) 09/14/23 05:40 RDW 13.6 % (11.6-16.5) 09/14/23 05:40 Plt Count 303 X10^3/uL (150.0-450.0) 09/14/23 05:40 Plt Count Comment Adequate (ADEQUATE) 09/13/23 04:28 MPV 7.7 fL (7.4-11.0) 09/14/23 05:40 Neut % (Auto) 56.2 % (42.0-75.0) 09/14/23 05:40 Lymph % (Auto) 25.6 % (21.0-51.0) 09/14/23 05:40 [place] % (Auto) 13.7 % (0.0-13.0) H 09/14/23 05:40 Eos % (Auto) 1.7 % (0.9-2.9) 09/14/23 05:40 Baso % (Auto) 2.8 % (0.2-1.0) H 09/14/23 05:40 Neut # (Auto) 2.3 x10^3/uL (2.2-4.8) 09/14/23 05:40 Lymph # (Auto) 1.1 X10^3/uL (1.3-2.9) L 09/14/23 05:40 [place] # (Auto) 0.6 x10^3/uL (0.3-0.8) 09/14/23 05:40 Eos # (Auto) 0.1 x10^3/uL (0.0-0.2) 09/14/23 05:40 Baso # (Auto) 0.1 X10^3/uL (0.0-0.1) 09/14/23 05:40 Absolute Nucleated RBC 0.5 /100WBC 09/14/23 05:40 Total Counted 100 09/11/23 04:06 Neutrophils % (Manual) 63 % (39-76) 09/11/23 04:06 Band Neutrophils % 10 % (0-10) 09/11/23 04:06 Lymphocytes % (Manual) 15 % (13-43) 09/11/23 04:06 Monocytes % (Manual) 11 % (4-9) H 09/11/23 04:06 Basophils % (Manual) 1 % (0-1) 09/11/23 04:06 Atypical Lymphocytes Few 09/11/23 04:06 Plt Morphology Comment Normal (NORMAL) 09/13/23 04:28 RBC Morphology Normal (NORMAL) 09/13/23 04:28 ESR 47 MM/HOUR (0-15) H 09/14/23 05:[address] [facility] 09/09/23 08:47 ABG pH 7.430 (7.35-7.45) 09/09/23 08:47 ABG pCO2 35.0 mmHg (35.0-45.0) 09/09/23 08:47 ABG pO2 64.0 mmHg (80.0-100.0) L 09/09/23 08:47 ABG HCO3 23.2 mmol/L (22-26) 09/09/23 08:47 ABG O2 Saturation 93.0 % (90-100) 09/09/23 08:47 ABG Base Excess -0.7 mmol/L (-2.0-2.0) 09/09/23 08:47 Stiven Test N/a 09/09/23 08:47 A-a Gradient 42.0 mmHg 09/09/23 08:47 FiO2 21.0 09/09/23 08:47 Blood Gas Comments Pt kirsten well elj 09/09/23 08:47 Sodium 135 mmol/L (136-145) L 09/14/23 05:40 Corrected Sodium 139 mmol/L (136-145) 09/14/23 05:40 Potassium 3.2 mmol/L (3.5-5.1) L 09/14/23 05:40 Chloride 98 mmol/L (98-107) 09/14/23 05:40 Carbon Dioxide 29.3 mmol/L (21-32) 09/14/23 05:40 BUN 13 mg/dL (7-18) 09/14/23 05:40 Creatinine 0.54 mg/dL (0.70-1.30) L 09/14/23 05:40 Est GFR (MDRD) Af Amer > 60 (>60) 09/14/23 05:40 Est GFR (MDRD) Non-Af > 60 (>60) 09/14/23 05:40 Glucose 267 mg/dL (65-99) H 09/14/23 05:40 POC Glucose (mg/dL) 115 mg/dL (65-99) H 09/14/23 16:00 Hemoglobin A1c > 14.0 % 09/09/23 00:18 Lactic Acid 1.5 mmol/L (0.4-2.0) 09/11/23 20:07 Calcium 7.9 mg/dL (8.5-10.1) L 09/14/23 05:40 Corrected Calcium 9.4 mg/dL (8.5-10.1) 09/14/23 05:40 Magnesium 2.0 mg/dL (2.0-2.9) 09/14/23 05:40 Total Bilirubin 0.50 mg/dL (0.2-1.0) 09/14/23 05:40 AST 26 Units/L (15-37) 09/14/23 05:40 ALT 49 Units/L (12-78) 09/14/23 05:40 Alkaline Phosphatase 245 Units/L (46-116) H 09/14/23 05:40 C-Reactive Protein 34.00 mg/L (0-3.0) H 09/14/23 05:40 Total Protein 5.6 g/dL (6.4-8.2) L 09/14/23 05:40 Albumin 2.1 g/dL (3.4-5.0) L 09/14/23 05:40 Globulin 3.5 g/dL (2.5-4.5) 09/14/23 05:40 Albumin/Globulin Ratio 0.6 Ratio (1.1-2.1) L 09/14/23 05:40 Specimen Type Clean catch urine 09/09/23 03:00 Urine Color Yellow (YELLOW) 09/09/23 03:00 Urine Appearance Clear (CLEAR) 09/09/23 03:00 Urine pH 5.0 (5.0 - 8.0) 09/09/23 03:00 Ur Specific [place] 1.015 (1.000-1.030) 09/09/23 03:00 Urine Protein 1+ (NEGATIVE) 09/09/23 03:00 Urine Glucose (UA) 4+ (NEGATIVE) 09/09/23 03:00 Urine Ketones 4+ (NEGATIVE) 09/09/23 03:00 Urine Blood 1+ (NEGATIVE) 09/09/23 03:00 Urine Nitrite Positive (NEGATIVE) 09/09/23 03:00 Urine Bilirubin Negative (NEGATIVE) 09/09/23 03:00 Urine Acetone Cancelled 09/09/23 03:00 Urine Urobilinogen Normal (NORMAL) 09/09/23 03:00 Ur Leukocyte Esterase Negative (NEGATIVE) 09/09/23 03:00 Urine RBC 3-5 /HPF (0-3) A 09/09/23 03:00 Urine WBC 20-30 /HPF (0-5) A 09/09/23 03:00 Ur Squamous Epith Cells Few /HPF (NEGATIVE) 09/09/23 03:00 Ur Transition Epith Cell Rare /HPF (NEGATIVE) 09/09/23 03:00 Urine Bacteria 1+ /HPF (NEGATIVE) 09/09/23 03:00 Ur Culture Indicated? Yes/culture set up 09/09/23 03:00 Stl Occult Blood (IFOB) Positive (NEGATIVE) A 09/10/23 12:05 Stool for White Cells Positive (NEGATIVE) A 09/10/23 12:05 Stl C. diff Tox B Gene Negative (NEGATIVE) 09/10/23 12:05 Stl C. diff [id number] Presumptive negative (NEGATIVE) 09/10/23 12:05 Acetone, Semi-Quant Negative (NEGATIVE) 09/10/23 04:00 SARS-CoV-2 (PCR) Negative (NEGATIVE) 09/08/23 22:00 Cryptosporid parvum Ag Negative (NEGATIVE) 09/10/23 12:05 Giardia lamblia Ag Negative (NEGATIVE) 09/10/23 12:05 Influenza Type A (PCR) Negative (NEGATIVE) 09/08/23 22:00 Influenza Type B (PCR) Negative (NEGATIVE) 09/08/23 22:00 RSV (PCR) Negative (NEGATIVE) 09/08/23 22:00 S. pyogenes (TEM-PCR) Not detected (NOT DETECT) 09/08/23 22:00 Plan (1) Gram-negative sepsis: Status: Acute Plan: Follow-up blood cultures. I suspect the patient likely has urose psis secondary to ESBL Klebsiella pneumonia. It is sensitive to Invanz. (2) Cholelithiasis: Status: Acute Qualifiers: Cholelithiasis location: gallbladder Cholecystitis presence: without cholecystitis Biliary obstruction: without biliary obstruction Qualified Code(s): K80.20 - Calculus of gallbladder without cholecystitis without obstruction (3) Urinary tract infection: Status: Acute Qualifiers: Hematuria presence: without hematuria Urinary tract infection type: acute cystitis Qualified Code(s): N30.00 - Acute cystitis without hematuria Plan: IV Rocephin. Follow-up urine culture and sensitivity report available. Start Invanz 1 g IV daily. (4) DKA (diabetic ketoacidosis): Status: Acute Qualifiers: Diabetes mellitus complication detail: without coma Diabetes mellitus type: type 1 Qualified Code(s): E10.10 - Type 1 diabetes mellitus with ketoacidosis without coma Plan: Insulin drip per protocol. Check daily ABGs and serum acetone's until he is serum acetone negative. (5) General weakness: Status: Acute Plan: Monitor for improvement with IV insulin drip and IV fluid hydration along with IV antibiotics. (6) Hypokalemia: Status: Acute Plan: Replace with potassium replacement protocol. (7) Hypomagnesemia: Status: Acute Plan: Replace magnesium with the magnesium replacement and potassium replacement protocol. (8) Elevated LFTs: Status: Acute Plan: The patient's elevated LFTs are likely secondary to gram-negative sepsis. However we will go ahead and check hepatitis panel and a liver ultrasound. (9) Urinary tract infection due to extended-spectrum beta lactamase (ESBL)- producing Klebsiella: Status: Acute Plan: Continue IV Invanz. He has KASSY of less than 0.5 for ertapenem. (10) Type 1 diabetes mellitus: Status: Acute Qualifiers: Diabetes mellitus complication status: with hyperglycemia Qualified Code(s): E10.65 - Type 1 diabetes mellitus with hyperglycemia Plan: Regular insulin sliding scale before every meal and at bedtime. (11) UTI due to Klebsiella species: Status: Acute Plan: The oxytoca that was in the urine culture is sensitive to IV ertapenem with a KASSY of less than 0.5 (12) Thickening of wall of gallbladder: Status: Acute Plan: HIDA scan today at noon consult general surgery.
[2023-09-15 00:09] VITALS: RESP 18
[2023-09-15 06:16] LABS: ALANINE AMINOTRANSFERASE 40 Units/L (12-78); ALBUMIN 2.3 g/dL (3.4-5.0); ALKALINE PHOSPHATASE 241 Units/L (46-116); ASPARTATE AMINO TRANSFERASE 32 Units/L (15-37); BLOOD UREA NITROGEN 15 mg/dL (7-18); CARBON DIOXIDE 29.3 mmol/L (21-32); CHLORIDE 101 mmol/L (98-107); COR CA(FOR HYPOALB) 9.4 mg/dL (8.5-10.1); COR NA(FOR HYPERGLY) 138 mmol/L (136-145); CREATININE 0.64 mg/dL (0.70-1.30); GLUCOSE 172 mg/dL (65-99); POTASSIUM 3.6 mmol/L (3.5-5.1); SODIUM 136 mmol/L (136-145); TOTAL PROTEIN 5.8 g/dL (6.4-8.2); eGFR NON BLACK RACES > 60 (>60)
[2023-09-15 06:23] LABS: ERYTHROCYTE SEDIMENTATION RATE 53 MM/HOUR (0-15); MEAN PLATELET VOLUME 7.3 fL (7.4-11.0); WHITE BLOOD COUNT 5.4 X10^3/uL (3.6-10.0)
[2023-09-15 06:30] LABS: BASOPHILS % (AUTO) 0.7 % (0.2-1.0); EOSINOPHILS # (AUTO) 0.1 x10^3/uL (0.0-0.2); EOSINOPHILS % (AUTO) 1.8 % (0.9-2.9); HEMATOCRIT 29.4 % (42.0-54.0); HEMOGLOBIN 10.2 g/dL (13.5-18.0); LYMPHOCYTES # (AUTO) 1.1 X10^3/uL (1.3-2.9); LYMPHOCYTES % (AUTO) 20.3 % (21.0-51.0); MEAN CORPUSCULAR HEMOGLOBIN 32.4 pg (27.0-34.0); MEAN CORPUSCULAR HGB CONC 34.6 g/dL (33.0-35.0); MEAN CORPUSCULAR VOLUME 93.8 fL (80.0-100.0); MONOCYTES # (AUTO) 0.7 x10^3/uL (0.3-0.8); MONOCYTES % (AUTO) 12.4 % (0.0-13.0); NEUTROPHILS # (AUTO) 3.5 x10^3/uL (2.2-4.8); NEUTROPHILS % (AUTO) 64.8 % (42.0-75.0); PLATELET COUNT 364 X10^3/uL (150.0-450.0); RED BLOOD COUNT 3.14 X10^6/uL (4.7-6.0); RED CELL DISTRIBUTION WIDTH 13.5 % (11.6-16.5)
[2023-09-15] MEDS ORDERED: CONSULT PHARMACY - POTASSIUM & MAGNESIUM XX SCH (07:00)
[2023-09-15] MEDS: K-DUR TAB 20 MEQ PO SCH (08:53)
[2023-09-15 12:34] VITALS: BP 167/94; PULSE 81; TEMP 97.7; O2SAT 98
--- NOTE | 2023-09-15 13:13 | PCM.DCPLAN ---
DISCHARGE SUMMARY Admission Date Date of Admission: 09/09/23 Discharge Date Discharge Date: 09/15/23 Admission Diagnoses (1) Gram-negative sepsis: Status: Acute (2) Cholelithiasis: Status: Acute (3) Urinary tract infection: Status: Acute (4) DKA (diabetic ketoacidosis): Status: Acute (5) General weakness: Status: Acute (6) Hypokalemia: Status: Acute (7) Hypomagnesemia: Status: Acute (8) Elevated LFTs: Status: Acute (9) Urinary tract infection due to extended-spectrum beta lactamase (ESBL)- producing Klebsiella: Status: Acute (10) Type 1 diabetes mellitus: Status: Acute (11) UTI due to Klebsiella species: Status: Acute (12) Thickening of wall of gallbladder: Status: Acute Discharge Diagnoses Discharge Diagnosis: 1. Sepsis secondary to Klebsiella oxytoca 2. UTI secondary to Klebsiella pneumonia ESBL 3. Abdominal pain resolved 4. Diarrhea resolved 5. Diabetes mellitus type 2 6. Elevated LFTs resolved 7. Hypokalemia resolved 8. Hypomagnesemia resolved 9. Generalized weakness resolved 10. Cholelithiasis Discharge Medications Discharge Medications: Home Medication List levofloxacin 500 mg tablet 500 mg PO QDAY #30 tabs 09/15/23 [Rx] metformin 1,000 mg tablet 1,000 mg PO BIDWMEAL 30 days #60 tabs 09/15/23 [Rx] Prescriptions: Moe Simpson metformin Moe Manriquez Hospital Course Vital Signs: Vital Signs Temperature 97.8 F Pulse Rate [Right] 71 Respiratory Rate 18 Blood Pressure [Right Arm] 115/82 Blood Pressure [Right Arm] 87/53 O2 Sat by Pulse Oximetry 96 Latest Lab Results: Laboratory Last Values WBC 5.4 X10^3/uL (3.6-10.0) 09/15/23 05:10 RBC 3.14 X10^6/uL (4.7-6.0) L 09/15/23 05:10 Hgb 10.2 g/dL (13.5-18.0) L 09/15/23 05:10 Hct 29.4 % (42.0-54.0) L 09/15/23 05:10 MCV 93.8 fL (80.0-100.0) 09/15/23 05:10 MCH 32.4 pg (27.0-34.0) 09/15/23 05:10 MCHC 34.6 g/dL (33.0-35.0) 09/15/23 05:10 RDW 13.5 % (11.6-16.5) 09/15/23 05:10 Plt Count 364 X10^3/uL (150.0-450.0) 09/15/23 05:10 Plt Count Comment Adequate (ADEQUATE) 09/13/23 04:28 MPV 7.3 fL (7.4-11.0) L 09/15/23 05:10 Neut % (Auto) 64.8 % (42.0-75.0) 09/15/23 05:10 Lymph % (Auto) 20.3 % (21.0-51.0) L 09/15/23 05:10 [place] % (Auto) 12.4 % (0.0-13.0) 09/15/23 05:10 Eos % (Auto) 1.8 % (0.9-2.9) 09/15/23 05:10 Baso % (Auto) 0.7 % (0.2-1.0) 09/15/23 05:10 Neut # (Auto) 3.5 x10^3/uL (2.2-4.8) 09/15/23 05:10 Lymph # (Auto) 1.1 X10^3/uL (1.3-2.9) L 09/15/23 05:10 [place] # (Auto) 0.7 x10^3/uL (0.3-0.8) 09/15/23 05:10 Eos # (Auto) 0.1 x10^3/uL (0.0-0.2) 09/15/23 05:10 Baso # (Auto) 0.0 X10^3/uL (0.0-0.1) 09/15/23 05:10 Absolute Nucleated RBC 0.1 /100WBC 09/15/23 05:10 Total Counted 100 09/11/23 04:06 Neutrophils % (Manual) 63 % (39-76) 09/11/23 04:06 Band Neutrophils % 10 % (0-10) 09/11/23 04:06 Lymphocytes % (Manual) 15 % (13-43) 09/11/23 04:06 Monocytes % (Manual) 11 % (4-9) H 09/11/23 04:06 Basophils % (Manual) 1 % (0-1) 09/11/23 04:06 Atypical Lymphocytes Few 09/11/23 04:06 Plt Morphology Comment Normal (NORMAL) 09/13/23 04:28 RBC Morphology Normal (NORMAL) 09/13/23 04:28 ESR 53 MM/HOUR (0-15) H 09/15/23 05:10 Sample Site [facility] 09/09/23 08:47 ABG pH 7.430 (7.35-7.45) 09/09/23 08:47 ABG pCO2 35.0 mmHg (35.0-45.0) 09/09/23 08:47 ABG pO2 64.0 mmHg (80.0-100.0) L 09/09/23 08:47 ABG HCO3 23.2 mmol/L (22-26) 09/09/23 08:47 ABG O2 Saturation 93.0 % (90-100) 09/09/23 08:47 ABG Base Excess -0.7 mmol/L (-2.0-2.0) 09/09/23 08:47 Stiven Test N/a 09/09/23 08:47 A-a Gradient 42.0 mmHg 09/09/23 08:47 FiO2 21.0 09/09/23 08:47 Blood Gas Comments Pt kirsten well elj 09/09/23 08:47 Sodium 136 mmol/L (136-145) 09/15/23 05:10 Corrected Sodium 138 mmol/L (136-145) 09/15/23 05:10 Potassium 3.6 mmol/L (3.5-5.1) 09/15/23 05:10 Chloride 101 mmol/L (98-107) 09/15/23 05:10 Carbon Dioxide 29.3 mmol/L (21-32) 09/15/23 05:10 BUN 15 mg/dL (7-18) 09/15/23 05:10 Creatinine 0.64 mg/dL (0.70-1.30) L 09/15/23 05:10 Est GFR (MDRD) Af Amer > 60 (>60) 09/15/23 05:10 Est GFR (MDRD) Non-Af > 60 (>60) 09/15/23 05:10 Glucose 172 mg/dL (65-99) H 09/15/23 05:10 POC Glucose (mg/dL) 169 mg/dL (65-99) H 09/15/23 05:08 Hemoglobin A1c > 14.0 % 09/09/23 00:18 Lactic Acid 1.5 mmol/L (0.4-2.0) 09/11/23 20:07 Calcium 8.0 mg/dL (8.5-10.1) L 09/15/23 05:10 Corrected Calcium 9.4 mg/dL (8.5-10.1) 09/15/23 05:10 Magnesium 2.0 mg/dL (2.0-2.9) 09/14/23 05:40 Total Bilirubin 0.30 mg/dL (0.2-1.0) 09/15/23 05:10 AST 32 Units/L (15-37) 09/15/23 05:10 ALT 40 Units/L (12-78) 09/15/23 05:10 Alkaline Phosphatase 241 Units/L (46-116) H 09/15/23 05:10 C-Reactive Protein 22.90 mg/L (0-3.0) H 09/15/23 05:10 Total Protein 5.8 g/dL (6.4-8.2) L 09/15/23 05:10 Albumin 2.3 g/dL (3.4-5.0) L 09/15/23 05:10 Globulin 3.5 g/dL (2.5-4.5) 09/15/23 05:10 Albumin/Globulin Ratio 0.7 Ratio (1.1-2.1) L 09/15/23 05:10 Specimen Type Clean catch urine 09/09/23 03:00 Urine Color Yellow (YELLOW) 09/09/23 03:00 Urine Appearance Clear (CLEAR) 09/09/23 03:00 Urine pH 5.0 (5.0 - 8.0) 09/09/23 03:00 Ur Specific [place] 1.015 (1.000-1.030) 09/09/23 03:00 Urine Protein 1+ (NEGATIVE) 09/09/23 03:00 Urine Glucose (UA) 4+ (NEGATIVE) 09/09/23 03:00 Urine Ketones 4+ (NEGATIVE) 09/09/23 03:00 Urine Blood 1+ (NEGATIVE) 09/09/23 03:00 Urine Nitrite Positive (NEGATIVE) 09/09/23 03:00 Urine Bilirubin Negative (NEGATIVE) 09/09/23 03:00 Urine Acetone Cancelled 09/09/23 03:00 Urine Urobilinogen Normal (NORMAL) 09/09/23 03:00 Ur Leukocyte Esterase Negative (NEGATIVE) 09/09/23 03:00 Urine RBC 3-5 /HPF (0-3) A 09/09/23 03:00 Urine WBC 20-30 /HPF (0-5) A 09/09/23 03:00 Ur Squamous Epith Cells Few /HPF (NEGATIVE) 09/09/23 03:00 Ur Transition Epith Cell Rare /HPF (NEGATIVE) 09/09/23 03:00 Urine Bacteria 1+ /HPF (NEGATIVE) 09/09/23 03:00 Ur Culture Indicated? Yes/culture set up 09/09/23 03:00 Stl Occult Blood (IFOB) Positive (NEGATIVE) A 09/10/23 12:05 Stool for White Cells Positive (NEGATIVE) A 09/10/23 12:05 Stl C. diff Tox B Gene Negative (NEGATIVE) 09/10/23 12:05 Stl C. diff [id number] Presumptive negative (NEGATIVE) 09/10/23 12:05 Acetone, Semi-Quant Negative (NEGATIVE) 09/10/23 04:00 SARS-CoV-2 (PCR) Negative (NEGATIVE) 09/08/23 22:00 Cryptosporid parvum Ag Negative (NEGATIVE) 09/10/23 12:05 Giardia lamblia Ag Negative (NEGATIVE) 09/10/23 12:05 Influenza Type A (PCR) Negative (NEGATIVE) 09/08/23 22:00 Influenza Type B (PCR) Negative (NEGATIVE) 09/08/23 22:00 RSV (PCR) Negative (NEGATIVE) 09/08/23 22:00 S. pyogenes (TEM-PCR) Not detected (NOT DETECT) 09/08/23 22:00 Hospital Course: This is a pleasant 52-year-old male who presented to the [facility] emergency department a few days ago and was diagnosed with a urinary tract infection. The patient does have a history of diabetes mellitus. He was found to have a small amount acetone last night and because of that we decided to go ahead and admitting to the ICU started on insulin drip per protocol. The patient did not have money and was not able to get the antibiotics that was prescribed to him for his urinary tract infection so we will treat him with IV Rocephin for that. We will rehydrate him with IV fluids and repeat serum acet one and routine labs tomorrow morning. We checked ABG this morning and we see the patient is not acidotic at this time. The patient had a urinalysis with C&S done on 09/06/2023 there grew out Klebsiella pneumoniae ESBL. It is sensitive to meropenem with a KASSY of less than 0.5. Patient also had a positive blood culture 1 out of 2 on 09/06/1901/18/2024 showed gram-positive cocci. Following morning after admission the patient was complaining of diarrhea so we did stool workup. He was positive for blood and positive for WBCs in the stool so I ended up putting him on ciprofloxacin. His C. difficile was negative and Campi was negative and stool culture was negative. He continued to feel bad for the neck several days but he slowly improved with IV antibiotics. The blood cultures came back positive x 2 which were drawn on admission for Klebsiella oxytoca. It is also sensitive to the meropenem which she is receiving. Patient was covered with slight scale regular insulin per protocol for his type 2 diabetes mellitus. After approximately week of admission the patient was feeling better and his abdominal pain had resolved. We did do a ultrasound of his liver that showed gallstones and we proceeded to a CT scan of his abdomen and pelvis with IV and p.o. contrast that did not show any acute processes yesterday. This morning he is doing better and is feeling like going home. We asked which medications that he had been on previously for his diabetes and he states he was on metformin 1000 mg in the morning and 500 mg in afternoon. Since he is been fairly uncontrolled I will increase his metformin to 1000 mg twice daily. I will also cover him with Levaquin since it covers both the Klebsiella pneumonia ESBL and Klebsiella oxytoca. Patient will be discharged home in stable condition I will have him follow-up with me in a week for hospital follow-up.
[2023-09-15 15:08] LABS: HEPATITIS B SURFACE ANTIGEN Negative (Negative)
== END 2023-09-15 13:35 | disposition home or self-care (01) | DRG 871 ==
LOC: ER 21:35 → ICU 09-09 05:11 → MED/SURG 09-12 11:34
PROVIDERS: ADMIT Family Medicine; ATTEND Family Medicine
DX: Z16.12 Extended spectrum beta lactamase (ESBL) resistance; R70.0 Elevated erythrocyte sedimentation rate; R78.2 Finding of cocaine in blood; E83.42 Hypomagnesemia; A41.59 Other Gram-negative sepsis; E87.6 Hypokalemia; N39.0 Urinary tract infection, site not specified; E11.10 Type 2 diabetes mellitus with ketoacidosis without coma; E87.1 Hypo-osmolality and hyponatremia; B96.1 Klebsiella pneumoniae [K. pneumoniae] as the cause of diseases classified elsewhere; K80.20 Calculus of gallbladder without cholecystitis without obstruction; R53.1 Weakness; Z20.822 Contact with and (suspected) exposure to COVID-19; K82.8 Other specified diseases of gallbladder